=== PATIENT | male | born 1960 | race Caucasian/White ===

== ENCOUNTER 2019-11-24 21:19 | Inpatient (IN) | payer OTHER, SELFPAY ==
[2019-11-24] VITALS (7 sets, daily range): BP systolic 138–158; BP diastolic 72–91; PULSE 88–103; RESP 16–25; TEMP 37.6–38; O2SAT 97–99
--- NOTE | ~2019-11-24 | XR_ITS ---
EXAMINATION: XR foot LT min 3V DATE: 11/24/2019 22:57 INDICATION: Left foot pain and foot wound TECHNIQUE: Dorsoplantar, lateral, and 2 oblique views of the left foot were obtained. COMPARISON: None. FINDINGS: A linear radiopaque foreign body is present in the plantar soft tissues adjacent to the sha ft of the fourth metatarsal. In addition, there is plantar soft tissue gas of the foot near the fifth toe. There is osteopenia in the medial and plantar aspect of the fifth metatarsal head. There is adv anced osteoarthritis of the proximal foot and moderate osteoarthritis of the midfoot. Calcified ather osclerosis is noted. IMPRESSION: 1. Plantar soft tissue gas with findings suggestive of osteomyelitis of the fifth metatarsal head. 2. Linear radiopaque foreign body in the plantar soft tissues of the foot. 3. Osteoarthritis. Reviewed, dictated and finalized at location A. IMPRESSION: 1. Plantar soft tissue gas with findings suggestive of osteomyelitis of the fif th metatarsal head. 2. Linear radiopaque foreign body in the plantar soft tissues of the foot. 3. Osteoarthritis.
--- NOTE | ~2019-11-24 | XR_ITS ---
EXAMINATION: XR chest 1V portable INDICATION: Fever TECHNIQUE: Portable AP chest at 2239 hours COMPARISON: None available FINDINGS: There are minimal airspace opacities of the mid and lower lung zones. No pleural effusion o r pneumothorax is identified. The cardiomediastinal silhouette is normal. IMPRESSION: 1. Minimal airspace opacities of the mid and lower lung zones, consistent with atelectasis versus pne umonia. Reviewed, dictated and finalized at location A. IMPRESSION: 1. Minimal airspace opacities of the mid and lower lung zones, consistent with atelectasis versus pneumonia.
--- NOTE | ~2019-11-24 | US_ITS ---
EXAMINATION: US arterial ankle brachial ind DATE: 11/28/2019 13:48 INDICATION: Left foot ulcer. TECHNIQUE: Segmental pressures and plethysmographic and Doppler waveforms of the brachial and lower e xtremity arteries were obtained. COMPARISON: None. FINDINGS: The right brachial artery pressure was not measured. The left brachial artery pressure is 165 mm Hg. There is a right below-knee amputation. The left LONG could not be measured due to inability to cuff-occlude the arteries. The left TBI is 0.7 6. Arterial Doppler waveforms are biphasic at the ankle. IMPRESSION: 1. Normal left TBI and nondiagnostic left LONG. No significant arterial occlusive disease. Reviewed, dictated and finalized at location A. IMPRESSION: 1. Normal left TBI and nondiagnostic left LONG. No significant arterial occlusiv e disease.
--- NOTE | ~2019-11-24 | US_ITS ---
EXAMINATION: US renal BI DATE: 11/25/2019 15:22 INDICATION: Acute kidney injury. TECHNIQUE: Multiple ultrasound grayscale images of the kidneys were obtained. COMPARISON: None. FINDINGS: The right kidney measures 10.2 x 5.3 x 4.5 cm. The left kidney measures 10.5 x 5.1 x 4.7 cm. The kidn eys demonstrate normal parenchymal echogenicity. There is a 1.8 cm cyst in left kidney. There is no h ydronephrosis. The bladder is decompressed by a Salguero catheter. IMPRESSION: 1. Normal kidney sizes. No hydronephrosis. Reviewed, dictated and finalized at location A.
--- NOTE | ~2019-11-24 | US_ITS ---
. EXAMINATION: US biopsy renal DATE: 12/01/2019 13:21 INDICATION: Acute kidney injury. TECHNIQUE: The procedure including the risks, benefits, and alternatives was discussed with the patie nt. Risks discussed included bleeding and infection. The patient understood the risks and agreed to p roceed. A timeout was performed to verify the patient's name, date of , and procedure to be p erformed. The skin overlying the left kidney was prepped and draped in usual sterile fashion. Anest hetic was administered with 1% lidocaine subcutaneously. An 18 gauge core biopsy needle was then use d to obtain 5 core biopsy specimens under continuous sonographic guidance. The entry site was cleaned and dressed. There were no immediate complications. FINDINGS: Ultrasound images demonstrate the needle in the kidney. IMPRESSION: 1. Ultrasound-guided random left kidney core needle biopsy. Reviewed, dictated and finalized at location A.
--- NOTE | ~2019-11-24 | CT_ITS ---
EXAMINATION: CT brain wo con INDICATION: Generalized weakness, sudden onset blindness COMPARISON: None TECHNIQUE: Standard unenhanced head CT. The dose-length product (DLP) was 681.00 mGy-cm. The mA was a djusted according to patient size. Iterative reconstruction technique was employed. FINDINGS: There is no acute intraparenchymal hemorrhage. No evidence of mass lesion. No evidence of a cute infarction. There is mild periventricular and subcortical hypodensity probably related to small vessel ischemic disease. There is mild prominence of the sulci and ventricles related to cerebral atr ophy. Intracranial calcified cerebral atherosclerosis is noted. There are no extra-axial collections. There is no mass effect or midline shift. The orbits and soft tissues are unremarkable. There is mi ld mucosal thickening of the paranasal sinuses. IMPRESSION: 1. No acute intracranial abnormality. 2. Age related findings. Reviewed, dictated and finalized at location A.
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
--- NOTE | 2019-11-24 21:34 | ECG_ITS ---
Measurements Intervals [place] Rate: 98 P: [place]: 0 QRS: -50 QRSD: 146 T: 63 QT: 364 QTc: 467 Interpretive Statements SINUS RHYTHM RIGHT BUNDLE BRANCH BLOCK LEFT ANTERIOR FASCICULAR BLOCK BASELINE ARTIFACT- V2 ABNORMAL ECG Electronically Signed On 11-25-2019 6:50:13 CDT by Gui Conner D.O.
[2019-11-24] MEDS: SODIUM CHLORIDE 0.9% IV 1,000 ML 999 ML IV CONT (21:38)
[2019-11-24] MEDS: ACETAMINOPHEN 500 MG TABLET 1000 MG PO (21:38)
[2019-11-24 21:43] LABS: Basophils Percent Auto 0.1 % (0.2-1.2); Eosinophils Percent Auto 0.1 % (0-4.4); Hematocrit 26.3 % (42.0-52.0); Hemoglobin 8.3 g/dL (14.0-18.0); Immature Granulocyte Absolute 0.05 K/mm3 (0.00-0.031); Immature Granulocyte Percent A 0.3 % (0-0.5); Lymphocytes Absolute Auto 1.19 K/mm3 (0.9-3.2); Lymphocytes Percent Auto 8.3 % (18.3-44.2); Mean Corpuscular HGB Conc 31.6 g/dl (32-36); Mean Corpuscular Hemoglobin 30.3 pg (26-34); Mean Platelet Volume 9.7 fl (7.4-10.4); Monocytes Absolute Auto 1.1 K/mm3 (0.1-0.6); Monocytes Percent Auto 7.4 % (2.6-8.5); Neutrophils Percent Auto 83.8 % (45.5-73.1); Platelet Count Result 225 k/mm3 (150-375); Red Blood Count 2.74 M/mm3 (4.6-6.20); White Blood Count 14.4 K/mm3 (4.5-10.0)
[2019-11-24 21:52] LABS: INR 1.2; Prothrombin Time 14.9 Seconds (11.1-14.7)
[2019-11-24 21:53] LABS: Partial Thromboplastin Time 34.4 SECONDS (22.3-36.8)
[2019-11-24 21:54] LABS: Lactic Acid Reflex 0.8 mmol/L (0.7-2.1)
[2019-11-24 21:58] LABS: Alveolar/Arterial O2 Gradient 33.5 mmHg; Base Excess ABG -8.5 mEq/l (+/-2.0); Carboxyhemoglobin 0.3 % THb (0-2.0); Fractional Inspired Oxygen 21 %; HCO3 ABG 16.7 mEq/l (22.0-26.0); Methemoglobin ABG 0.3 %THb (0-1.5); Oxygen Content ABG 11.4 %vol (16.0-22.0); Oxygen Saturation ABG 94.6 % (95.0-100.0); Oxyhemoglobin 92.5 % THb (90.0-100.0); PCO2 ABG 32.8 mmHg (35.0-45.0); PO2 FiO2 Ratio Arterial Blood 3.67 %; Reduced Hemoglobin 6.9 %THb (0-5.0); Total Hemoglobin 8.7 g/dL (12.0-18.0); pH ABG 7.324 (7.350-7.450)
[2019-11-24 22:00] LABS: Alanine Aminotransferase 23 U/L (4-50); Albumin Level 3.3 g/dL (3.5-5.1); Alkaline Phosphatase 63 U/L (38-126); Anion Gap 9 mmol/L (8-16); Aspartate Amino Transferase 46 U/L (17-59); Bilirubin,Total 0.3 mg/dL (0.2-1.3); Blood Urea Nitrogen 71 mg/dL (9-20); Calcium 8.6 mg/dL (8.4-10.2); Carbon Dioxide 18 mmol/L (22-30); Chloride 109 mmol/L (98-107); Estimated CRCL calculation 10 ml/min; Estimated Glomerular Filt Rate 6; Glucose 97 mg/dL (75-110); Potassium 5.5 mmol/L (3.4-5.0); Sodium 136 mmol/L (137-145)
[2019-11-24 22:00] LABS: Device ROOM AIR; Modified Allen's Test Pass; Site Drawn RIGHT RADIAL
[2019-11-24 22:07] LABS: NT Pro B Type Natriuretic Pept > 35000 PG/ML (5-100); Troponin I 0.335 ng/mL (0.000-0.034)
[2019-11-24] MEDS: DEXTROSE 50% 25 GM/50 ML SYRINGE IV PUSH (23:14)
[2019-11-24] MEDS: INSULIN HUMAN REGULAR (*BKC) 100 UNITS/ML 10 UNITS IV PUSH (23:15)
[2019-11-24] MEDS: SODIUM BICARBONATE 8.4% 50 MEQ/50 ML VIAL IV PUSH (23:15)
[2019-11-24] MEDS: CALCIUM GLUCONATE 1,000 MG/10 ML VIAL 1000 MG IV PUSH (23:15)
[2019-11-24 23:16] LABS: Ammonia < 9 umol/L (9-30)
[2019-11-25] VITALS (18 sets, daily range): BP systolic 119–170; BP diastolic 75–99; PULSE 79–105; RESP 14–18; TEMP 36.2–36.8; O2SAT 92–98; BMI 33.5
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
[2019-11-25 00:10] LABS: Add Urine Microscopic? YES; Appearance Urine Clear (Clear); Bacteria Urine Trace /hpf; Bilirubin Urine Negative (Negative); Blood Urine 1+ (Negative); Color Urine Yellow (Yellow); Glucose Urine UA 3+ mg/dL (Negative); Ketones Urine Negative (Negative); Leukocyte Esterase Ur Negative LEU/UL (Negative); Mucus Urine Rare /lpf; Nitrate Urine Negative (Negative); Protein Urine 3+ mg/dL (Negative); Squamous Epithelial Cell Urine Occasional /hpf (Few); Urobilinogen Urine Negative mg/dL (<2.0)
[2019-11-25 00:48] LABS: Glucose Point of Care 90 (65-105)
--- NOTE | 2019-11-25 01:43 | PC.NURSE ---
Addendum entered by Gricelda Sandoval 11/25/19 03:32: @[address] CHAVIRA- ED CALL LIST NOT CORRECT AND HE IS PROVIDER SNAP ATTACHER. EDP ALSO SPOKE TO DR. CHAVIRA ABOUT CALL SHEET. Original Note: ATTEMPTED TO CALL ER ON-CALL NON-INTERVENTIONAL CARDIOLOGY 3 TIMES; 11.24.2019 @2330, 11.25.2019 @0009, AND 11.25.2019 @0043. ALL THREE CALL ATTEMPTS THROUGH [facility]. STAFF SEEMED CONFUSED ON WHO TO CALL AND DR. CHAVIRA CALLED BACK BUT TOLD US HE WAS THE ESTABLISHED PT SNAP ATTACHER DOCTOR . ONCE I CALLED [facility] BACK, THEY WERE INFORMED TO CALL ER ON-CALL MD. WE NEVER RECEIVED CALL BACK FROM AN MD. PT WAS BROUGHT TO ICU. THIS TECH CALLED TO INFORM NURSE CARING FOR PT ABOUT THE SITUATION AND TO HAVE CONSULT IN THE MORNING.
--- NOTE | 2019-11-25 02:01 | ADMGEN ---
This patient, Kurt Goode, was admitted to Intensive Care Unit-5. Patient/family oriented to hospital policies and general routines including ID bracelet, bed and alarms, visiting hours, pain management, procedures, bathroom and other care routines, personal items, smoking policy, room service/diet, and visiting hours. Valuables list has been completed. Information on how to activate the Rapid Response Team has been discussed. Patient/Family are encouraged to report perceived risks to care and to ask questions if they do not understand what they are told or what they should do.
[2019-11-25] MEDS: FUROSEMIDE INJ 40 MG/4 ML VIAL IV PUSH (02:11)
[2019-11-25 03:48] LABS: Basophils Percent Auto 0.2 % (0.2-1.2); Eosinophils Absolute Auto 0.1 K/mm3 (0-0.3); Eosinophils Percent Auto 0.7 % (0-4.4); Hematocrit 24.4 % (42.0-52.0); Hemoglobin 7.7 g/dL (14.0-18.0); Immature Granulocyte Absolute 0.05 K/mm3 (0.00-0.031); Immature Granulocyte Percent A 0.4 % (0-0.5); Lymphocytes Absolute Auto 1.56 K/mm3 (0.9-3.2); Lymphocytes Percent Auto 12.9 % (18.3-44.2); Mean Corpuscular HGB Conc 31.6 g/dl (32-36); Mean Corpuscular Hemoglobin 30.8 pg (26-34); Mean Corpuscular Volume 97.6 fl (80-100); Monocytes Absolute Auto 1.1 K/mm3 (0.1-0.6); Neutrophils Absolute Auto 9.3 K/mm3 (1.3-6.7); Neutrophils Percent Auto 76.8 % (45.5-73.1); Platelet Count Result 196 k/mm3 (150-375); Red Cell Distribution Width 13.2 % (11.5-14.5); White Blood Count 12.1 K/mm3 (4.5-10.0)
[2019-11-25 04:02] LABS: Anion Gap 7 mmol/L (8-16); Blood Urea Nitrogen 73 mg/dL (9-20); Calcium 8.5 mg/dL (8.4-10.2); Carbon Dioxide 19 mmol/L (22-30); Chloride 110 mmol/L (98-107); Estimated CRCL calculation 11 ml/min; Estimated Glomerular Filt Rate 6; Glucose 77 mg/dL (75-110); Potassium 5.2 mmol/L (3.4-5.0); Sodium 136 mmol/L (137-145)
[2019-11-25 04:18] LABS: Troponin I 0.443 ng/mL (0.000-0.034)
--- NOTE | 2019-11-25 06:00 | ECHO_ITS ---
Patient Info Name: Kurt Goode Age: 59 years : 1960 Gender: Male Ht: 74 in Wt: 249 lbs BSA: 2.46 m2 Exam Date: 11/25/2019 7:50 AM Exam Location: [facility] Patient Status: Inpatient Admit Date: 11/24/2019 Staff Ordering Physician: Alix Gallegos MD Attending Provider: Rodo Hudson MD Referring Physician: El STEWART; Exam Type: CA echo doppler color flow Summary 1. There is mild increased left ventricular wall thickness. 2. Left ventricular systolic function is low normal, estimated EF \R\ 50%. 3. There is mild aortic valve calcification. 4. There is no aortic valve stenosis. 5. There is no mitral valve regurgitation. 6. Can't assess RVSP due to poor TR signal. . 7. There is no pericardial effusion. 8. Inferior vena cava is dilated with no collapse upon inspiration consistent with volume overload. Left Ventricle Left ventricular chamber dimension is normal. Left ventricular systolic function is low normal, estimated EF \R\ 50%. There is mild increased left ventricular wall thickness. Difficult to arcuately assess regional wall motion changes due to poor endocardial definition. The left ventricular diastolic function is impaired. Right Ventricle Right ventricular chamber dimension is normal. Right ventricular systolic function is normal. Left Atria Left atrial chamber dimension is normal. Right Atria Right atrial chamber dimension is normal. Aortic Valve The aortic valve is trileaflet. There is no aortic valve sclerosis. There is no aortic valve stenosis. There is no aortic valve regurgitation. There is mild aortic valve calcification. Pulmonic Valve The pulmonic valve is normal. There is no pulmonic valve stenosis. There is no pulmonic regurgitation. Mitral Valve The mitral valve has normal leaflets. There is no mitral valve stenosis. There is no mitral valve regurgitation. Tricuspid Valve The tricuspid valve leaflets are normal. There is no significant tricuspid valve stenosis. There is no tricuspid valve regurgitation. Can't assess RVSP due to poor TR signal. . Pericardium/Pleural The pericardium appears normal. There is no pericardial effusion. Inferior Vena Cava Inferior vena cava is dilated with no collapse upon inspiration consistent with volume overload. Aorta The aortic root size at the sinus of Valsalva is normal. The prox ascending aorta size is normal. Left Ventricular Outflow Tract Name Value Normal LVOT 2D LVOT Diameter 2.3 cm LVOT Doppler LVOT Peak Velocity 76 cm/s LVOT Peak Gradient 2 mmHg LVOT Mean Gradient 1 mmHg LVOT VTI 14 cm LVOT VTI/AV VTI Ratio 0.9 LVOT Stroke Volume 56 ml LVOT CO 5.3 l/min LVOT CI 2.2 l/min/m2 Mitral Valve Name Value Normal
[2019-11-25] MEDS: LEVOTHYROXINE SODIUM 112 MCG TABLET PO (06:29)
[2019-11-25 06:46] LABS: Free T4 Free Thyroxine Reflex 1.04 ng/dL (0.78-2.19)
--- NOTE | 2019-11-25 07:47 | PM.CNCAR ---
Assessment and Plan Assessment and plan (1) Elevated troponin: Code(s): R79.89 - Other specified abnormal findings of blood chemistry Status: Acute Assessment and Plan: 59 y/o with h/o DM complicated with diabetic foot infection s/p right BKA, CKD who was admitted with shortness of breath and cough who was found to have mildly elevated troponin His trop is 0.3-->0.4. He has atypical chest pain only with cough EKG with RBBB and no ischemic changes His trop elevation is likely due to type II NH from increased demand related to underlying sepsis as well as BREE No indication for AC at this point. WIll follow troponin to peak Will check 2D echo to rule out regional wall motion changes Given multiple cardiovascular risk factors he would benefit from stress testing for risk stratification. That can be done in outpatient setting once he recovers from infection and BREE (2) Acute exacerbation of CHF (congestive heart failure): Qualifiers: Heart failure type: unspecified Qualified Code(s): I50.9 - Heart failure, unspecified Code(s): I50.9 - Heart failure, unspecified Status: Acute Assessment and Plan: In the setting of BREE that appears in part due to obstructive uropathy. He had 1 liter of urine with straight cath and creatinine already improving. Would hold off diuresis with loop diuretics anticipating Postobstructive diuresis Follow 2D echocardiogram (3) Acute renal failure: Qualifiers: Acute renal failure type: unspecified Qualified Code(s): N17.9 - Acute kidney failure, unspecified Code(s): N17.9 - Acute kidney failure, unspecified Status: Acute Assessment and Plan: management per nephrology (4) Diabetes: Qualifiers: Diabetes mellitus type: type 2 Diabetes mellitus engineering program manager insulin use: with custodial use Diabetes mellitus complication status: with circulatory complication Diabetes mellitus complication detail: with other circulatory complications Qualified Code(s): E11.59 - Type 2 diabetes mellitus with other circulatory complications; Z79.4 - correction (current) use of insulin Code(s): E11.9 - Type 2 diabetes mellitus without complications Status: Chronic History of Present Illness History of Present Illness Consult date/time: 11/25/19 07:47 59 y/o male with h/o hypothyroidism, DM, s/p BKA of right lower ext, CKD, BPH with urinary retention, recent hospitalization with left foot wound infection who presents now with shortness of breath and cough On admission he met sepsis criteria with fever 38.0, tachycardic 103 and leukocytosis 14. His labs were also notable for creatinine of 9.4 without clear baseline with K 5.2. He was also found to have mildly elevated troponin at 0.3-->0.4 hence cardiology consult was requested. Patient is somewhat poor historian. He denies having any heart issues in the past. He was coughing non stop through my encounter with him. He admits to chest pain when he coughs. He also reports shortness of breath. He underwent BKA of right leg about 5 years ago due to diabetic foot infection. EKG shows sinus tachycardia with RBBB and LAFB Reason For Visit: Weakness+ Review of Systems Review of Systems: All systems reviewed & are unremarkable except as noted in HPI and below Constitutional: Constitutional: Denies fatigue and Denies headache(s) Eyes: Eyes: Denies blurry vision ENT: Reports Normal hearing present and Denies headache(s) Cardiovascular: Cardiovascular: Denies chest pain, Denies diaphoresis, Denies pedal edema, Denies leg edema, Denies lightheadedness, Denies palpitations and Denies dyspnea Respiratory: Respiratory: Denies cough and Denies dyspnea Gastrointestinal: Gastrointestinal: Denies abdominal pain Musculoskeletal: Musculoskeletal: Denies back pain Neurologic: Reports Normal hearing present and Denies headache(s) Psychiatric: Psychiatric: Denies anxiety Endocri
[2019-11-25 08:00] LABS: Total Triiodothyronine (T3) 0.76 NG/ML (0.97-1.69)
[2019-11-25] MEDS: ASPIRIN 325 MG TABLET PO (08:30)
[2019-11-25 08:49] LABS: Glucose Point of Care 90 (65-105)
[2019-11-25] MEDS: LORazepam (*CRX) 0.5 MG TABLET PO ×2 (10:27→23:08)
[2019-11-25] MEDS: GABAPENTIN 300 MG CAPSULE 600 MG PO ×2 (10:27→17:06)
[2019-11-25 12:06] LABS: Glucose Point of Care 99 (65-105)
[2019-11-25 14:17] LABS: SARS-CoV-2 RNA PCR Negative
--- NOTE | 2019-11-25 15:20 | PC.NURSE ---
Patient downgraded to IMU status. Report given to Sarah FUENTES. Patient travelled via bed to 201 with all belongings and medications given to school secretary at 1520
--- NOTE | 2019-11-25 15:23 | PC.NURSE ---
This patient, Kurt Goode, was received from ICU-5 into 201 on 11/25/19 at 1523. Personal belongings list checked and signed. Patient/family oriented to unit policies and routines
--- NOTE | 2019-11-25 15:53 | P.CONNP_ITS ---
Assessment and Plan Assessment and plan (1) Acute renal failure: Qualifiers: Acute renal failure type: unspecified Qualified Code(s): N17.9 - Acute kidney failure, unspecified Code(s): N17.9 - Acute kidney failure, unspecified Status: Acute Assessment and Plan: * etiology is unclear * is this progression of disease versus and acute insult on his baseline CKD??? * UA is significant for blood and protein so vasculitis, glomerulonephritis, or some other inflammatory disorder is possible * will proceed with serological testing as well as urine electrolytes...etc * renal ultrasound noted * may need to consider a renal biopsy for a definitive diagnosis * in spite of labs, no urgent need for LOADING SHOVEL OILER/dialysis at this time * may need to discuss with family as I am not clear if he understands the seriousness of this problem/issue (2) Chronic kidney disease, stage 3: Code(s): N18.3 - Chronic kidney disease, stage 3 (moderate) Status: Acute Assessment and Plan: * creatinine of 1.83mg/dl in April 2018 (presumed bseline) * likely on the basis of HTN, diabetes, and vascular disease (3) Hyperkalemia: Code(s): E87.5 - Hyperkalemia Status: Acute Assessment and Plan: * mild and likely related to #1 * follow trend for now (4) Sepsis: Qualifiers: Acute renal failure type: unspecified Sepsis acute organ dysfunction status: with acute organ dysfunction Sepsis type: sepsis due to unspecified organism Severe sepsis acute organ dysfunction type: acute renal failure Severe sepsis shock status: without septic shock Qualified Code(s): A41.9 - Sepsis, unspecified organism; R65.20 - Severe sepsis without septic shock; N17.9 - Acute kidney failure, unspecified Code(s): A41.9 - Sepsis, unspecified organism Status: Acute Assessment and Plan: * patient on hospitalization at [facility] as well as currently * presumably due to right foot osteomyelitis (#4) * follow cultures * continue antibiotics * follow hemodynamics (5) Osteomyelitis: Qualifiers: Laterality: left Osteomyelitis location: foot Osteomyelitis type: other Qualified Code(s): M86.8X7 - Other osteomyelitis, ankle and foot Code(s): M86.9 - Osteomyelitis, unspecified Status: Acute Assessment and Plan: * as noted by imaging studies to date * Orthopedics consulted * surgical intervention? (6) Elevated troponin: Code(s): R79.89 - Other specified abnormal findings of blood chemistry Status: Acute Assessment and Plan: * Cardiology recommendations noted * supportive therapy (7) Anemia: Qualifiers: Anemia type: unspecified type Qualified Code(s): D64.9 - Anemia, unspecified Code(s): D64.9 - Anemia, unspecified Status: Acute Assessment and Plan: * presumably due to BREE, CKD, and acute illness * consider Epogen while hospitalized * follow trend of H/H (8) Diabetes: Qualifiers: Diabetes mellitus complication detail: with other circulatory complicat ions Diabetes mellitus complication status: with circulatory complication Diabetes mellitus petroleum terminal plant operator insulin use: with fdc use Diabetes mellitus type: type 2 Qualified Code(s): E11.59 - Type 2 diabetes mellitus with other circulatory complications; Z79.4 - intermodal dispatcher (current) use of insulin Code(s): E11.9 - Type 2 diabetes mellitus without complications Status: Chronic Assessment and Plan: * follow accuchecks * poor control at baseline given las
--- NOTE | 2019-11-25 15:53 | PM.CNNEP ---
Assessment and Plan Assessment and plan (1) Acute renal failure: Qualifiers: Acute renal failure type: unspecified Qualified Code(s): N17.9 - Acute kidney failure, unspecified Code(s): N17.9 - Acute kidney failure, unspecified Status: Acute Assessment and Plan: etiology is unclear is this progression of disease versus and acute insult on his baseline CKD??? UA is significant for blood and protein so vasculitis, glomerulonephritis, or some other inflammatory disorder is possible will proceed with serological testing as well as urine electrolytes...etc renal ultrasound noted may need to consider a renal biopsy for a definitive diagnosis in spite of labs, no urgent need for JAVA ANDROID DEVELOPER/dialysis at this time may need to discuss with family as I am not clear if he understands the seriousness of this problem/issue (2) Chronic kidney disease, stage 3: Code(s): N18.3 - Chronic kidney disease, stage 3 (moderate) Status: Acute Assessment and Plan: creatinine of 1.83mg/dl in April 2018 (presumed bseline) likely on the basis of HTN, diabetes, and vascular disease (3) Hyperkalemia: Code(s): E87.5 - Hyperkalemia Status: Acute Assessment and Plan: mild and likely related to #1 follow trend for now (4) Sepsis: Qualifiers: Acute renal failure type: unspecified Sepsis acute organ dysfunction status: with acute organ dysfunction Sepsis type: sepsis due to unspecified organism Severe sepsis acute organ dysfunction type: acute renal failure Severe sepsis shock status: without septic shock Qualified Code(s): A41.9 - Sepsis, unspecified organism; R65.20 - Severe sepsis without septic shock; N17.9 - Acute kidney failure, unspecified Code(s): A41.9 - Sepsis, unspecified organism Status: Acute Assessment and Plan: patient on hospitalization at [facility] as well as currently presumably due to right foot osteomyelitis (#4) follow cultures continue antibiotics follow hemodynamics (5) Osteomyelitis: Qualifiers: Laterality: left Osteomyelitis location: foot Osteomyelitis type: other Qualified Code(s): M86.8X7 - Other osteomyelitis, ankle and foot Code(s): M86.9 - Osteomyelitis, unspecified Status: Acute Assessment and Plan: as noted by imaging studies to date Orthopedics consulted surgical intervention? (6) Elevated troponin: Code(s): R79.89 - Other specified abnormal findings of blood chemistry Status: Acute Assessment and Plan: Cardiology recommendations noted supportive therapy (7) Anemia: Qualifiers: Anemia type: unspecified type Qualified Code(s): D64.9 - Anemia, unspecified Code(s): D64.9 - Anemia, unspecified Status: Acute Assessment and Plan: presumably due to BREE, CKD, and acute illness consider Epogen while hospitalized follow trend of H/H (8) Diabetes: Qualifiers: Diabetes mellitus complication detail: with other circulatory complications Diabetes mellitus complication status: with circulatory complication Diabetes mellitus correction insulin use: with termite control technician use Diabetes mellitus type: type 2 Qualified Code(s): E11.59 - Type 2 diabetes mellitus with other circulatory complications; Z79.4 - manager long term care (current) use of insulin Code(s): E11.9 - Type 2 diabetes mellitus without complications Status: Chronic Assessment and Plan: follow accuchecks poor control at baseline given last A1c on SSI Will continue to follow. History of Present Illness Reason for Consult Consult date: 11/25/19 Reason for consult: acute renal failure (on chronic kidney disease) Chief Complaint Chief complaint: Weakness+ History of Present Illness Narrative: All of the information I have obtained is from review of the electronic medical record, discussion with ER physcian last night, nursing, and availa
--- NOTE | 2019-11-25 16:31 | PM.IMPN ---
Progress Note: A&P Assessment and Plan (1) Acute exacerbation of CHF (congestive heart failure): Qualifiers: Heart failure type: unspecified Qualified Code(s): I50.9 - Heart failure, unspecified Code(s): I50.9 - Heart failure, unspecified Status: Acute Assessment and Plan: The patient appears to have undiagnosed heart failure seen by cardiology here. (2) Acute renal failure: Qualifiers: Acute renal failure type: unspecified Qualified Code(s): N17.9 - Acute kidney failure, unspecified Code(s): N17.9 - Acute kidney failure, unspecified Status: Acute Assessment and Plan: Likely secondary to urinary retention seen by nephroloy here (3) Urinary retention: Code(s): R33.9 - Retention of urine, unspecified Status: Acute Assessment and Plan: Insert Salguero catheter and monitor urine output. (4) Osteomyelitis: Qualifiers: Laterality: left Osteomyelitis location: foot Osteomyelitis type: other Qualified Code(s): M86.8X7 - Other osteomyelitis, ankle and foot Code(s): M86.9 - Osteomyelitis, unspecified Status: Acute Assessment and Plan: Continue antibiotics that were started in the ER for osteomyelitis. Consult orthopedics (5) Sepsis: Qualifiers: Acute renal failure type: unspecified Sepsis acute organ dysfunction status: with acute organ dysfunction Sepsis type: sepsis due to unspecified organism Severe sepsis acute organ dysfunction type: acute renal failure Severe sepsis shock status: without septic shock Qualified Code(s): A41.9 - Sepsis, unspecified organism; R65.20 - Severe sepsis without septic shock; N17.9 - Acute kidney failure, unspecified Code(s): A41.9 - Sepsis, unspecified organism Status: Resolved Assessment and Plan: Continue antibiotics. Bc negative to date. (6) Anemia: Qualifiers: Anemia type: unspecified type Qualified Code(s): D64.9 - Anemia, unspecified Code(s): D64.9 - Anemia, unspecified Status: Acute Assessment and Plan: Acute versus chronic anemia. .. (7) Suspected 2019 novel coronavirus infection: Code(s): Z20.828 - Contact with and (suspected) exposure to other viral communicable diseases Status: Inactive Assessment and Plan: COVID is negative (8) Leukocytosis: Qualifiers: Leukocytosis type: unspecified Qualified Code(s): D72.829 - Elevated white blood cell count, unspecified Code(s): D72.829 - Elevated white blood cell count, unspecified Status: Acute Assessment and Plan: May be secondary to osteomyelitis. Monitor CBCD. (9) Elevated troponin: Code(s): R79.89 - Other specified abnormal findings of blood chemistry Status: Acute Assessment and Plan: Troponin leak is likely secondary to acute heart failure exacerbation. (10) Hyperkalemia: Code(s): E87.5 - Hyperkalemia Status: Resolved Assessment and Plan: (11) Diabetes: Qualifiers: Diabetes mellitus type: type 2 Diabetes mellitus care home insulin use: with regional intermodal truck driver use Diabetes mellitus complication status: with circulatory complication Diabetes mellitus complication detail: with other circulatory complications Qualified Code(s): E11.59 - Type 2 diabetes mellitus with other circulatory complications; Z79.4 - exterminator helper termite (current) use of insulin Code(s): E11.9 - Type 2 diabetes mellitus without complications Status: Chronic Assessment and Plan: Unknown. Check hemoglobin A1c. Accu-Cheks. sliding scale insulin coverage. hypoglycemia protocol. Subjective Date/time seen: 11/25/19 16:31 Interval history: 1 year old Diabetic male male with known RLE BKA who presented to the hospital with a complaint of generalized weakness, shortness of breath and a dry hacking cough. COVID is negative, seen by cardiology for C HF and a
[2019-11-25] MEDS: SODIUM POLYSTYRENE SULFONONATE 15 GM/60 ML BTL PO (17:07)
[2019-11-25 17:21] LABS: Glucose Point of Care 117 (65-105)
[2019-11-25 20:33] LABS: Glucose Point of Care 109 (65-105)
[2019-11-25] MEDS: hydrALAZINE HCL 20 MG/ML VIAL 10 MG IV PUSH (20:58)
[2019-11-25 22:05] LABS: Creatinine Urine 85.9 mg/dL
[2019-11-25 22:37] LABS: Sodium Urine Random 49 meq/L
[2019-11-25 22:43] LABS: Total Protein Urine Random > 600 mg/dL
[2019-11-26] VITALS (13 sets, daily range): BP systolic 133–169; BP diastolic 73–90; PULSE 82–107; RESP 18–20; TEMP 36.1–36.5; O2SAT 95–98
[2019-11-26] MEDS: LEVOTHYROXINE SODIUM 112 MCG TABLET PO (06:13)
[2019-11-26 07:36] LABS: Hematocrit 24.5 % (42.0-52.0); Hemoglobin 7.9 g/dL (14.0-18.0); Mean Corpuscular HGB Conc 32.2 g/dl (32-36); Mean Corpuscular Hemoglobin 31.1 pg (26-34); Mean Corpuscular Volume 96.5 fl (80-100); Mean Platelet Volume 10.1 fl (7.4-10.4); Platelet Count Result 251 k/mm3 (150-375); Red Blood Count 2.54 M/mm3 (4.6-6.20); Red Cell Distribution Width 13.1 % (11.5-14.5); White Blood Count 13.7 K/mm3 (4.5-10.0)
[2019-11-26 07:46] LABS: Albumin Level 2.8 g/dL (3.5-5.1); Anion Gap 10 mmol/L (8-16); Blood Urea Nitrogen 78 mg/dL (9-20); Calcium 8.2 mg/dL (8.4-10.2); Carbon Dioxide 17 mmol/L (22-30); Chloride 107 mmol/L (98-107); Estimated CRCL calculation 10 ml/min; Estimated Glomerular Filt Rate 6; Glucose 90 mg/dL (75-110); Phosphorus 7.4 mg/dL (2.5-4.5); Potassium 4.9 mmol/L (3.4-5.0); Sodium 134 mmol/L (137-145)
[2019-11-26 07:53] LABS: Complement C3 94 mg/dL (88-165)
[2019-11-26 08:36] LABS: Hepatitis B Surface Antigen Negative (Negative)
[2019-11-26] MEDS: GABAPENTIN 300 MG CAPSULE 600 MG PO ×2 (08:44→17:23)
[2019-11-26] MEDS: ASPIRIN 325 MG TABLET PO (08:44)
[2019-11-26] MEDS: SILVERGEL (ELTA) 45 ML 1 APPLIC TOPICAL (08:44)
[2019-11-26 08:50] LABS: Hepatitis B Surface Anti Res Negative
[2019-11-26 08:52] LABS: HAV RESULT Negative (Negative); Hepatitis B Core IgM Result Negative (Negative); Hepatitis C Virus Antibody Negative (Negative)
[2019-11-26 09:31] LABS: Glucose Point of Care 91 (65-105)
--- NOTE | 2019-11-26 10:06 | P.PNNP_ITS ---
Progress Note: A&P Assessment and Plan (1) Acute renal failure: Qualifiers: Acute renal failure type: unspecified Qualified Code(s): N17.9 - Acute kidney failure, unspecified Code(s): N17.9 - Acute kidney failure, unspecified Status: Acute Assessment and Plan: * etiology is unclear * is this progression of disease versus and acute insult on his baseline CKD??? * UA is significant for blood and protein so vasculitis, glomerulonephritis, or some other inflammatory disorder is possible * serological testing pending * proteinuria still present * renal ultrasound noted * non-oliguric at this time * may need to consider a renal biopsy for a definitive diagnosis * in spite of labs, no urgent need for TICKET SALES SUPERVISOR/dialysis at this time * may need to discuss with family as I am not clear if he understands the seri ousness of this problem/issue (2) Chronic kidney disease, stage 3: Code(s): N18.3 - Chronic kidney disease, stage 3 (moderate) Status: Acute Assessment and Plan: * creatinine of 1.83mg/dl in April 2018 (presumed baseline) * likely on the basis of HTN, diabetes, and vascular disease (3) Hyperkalemia: Code(s): E87.5 - Hyperkalemia Status: Acute Assessment and Plan: * mild and likely related to #1 * resolving * follow trend for now (4) Sepsis: Qualifiers: Acute renal failure type: unspecified Sepsis acute organ dysfunction status: with acute organ dysfunction Sepsis type: sepsis due to unspecified organism Severe sepsis acute organ dysfunction type: acute renal failure Severe sepsis shock status: without septic shock Qualified Code(s): A41.9 - Sepsis, unspecified organism; R65.20 - Severe sepsis without septic shock; N17.9 - Acute kidney failure, unspecified Code(s): A41.9 - Sepsis, unspecified organism Status: Acute Assessment and Plan: * patient on hospitalization at [facility] as well as currently * presumably due to right foot osteomyelitis (#4) * follow cultures * continue antibiotics * follow hemodynamics (5) Osteomyelitis: Qualifiers: Laterality: left Osteomyelitis location: foot Osteomyelitis type: other Qualified Code(s): M86.8X7 - Other osteomyelitis, ankle and foot Code(s): M86.9 - Osteomyelitis, unspecified Status: Acute Assessment and Plan: * as noted by imaging studies to date * Orthopedics consulted * surgical intervention? (6) Elevated troponin: Code(s): R79.89 - Other specified abnormal findings of blood chemistry Status: Acute Assessment and Plan: * Cardiology recommendations noted * supportive therapy (7) Anemia: Qualifiers: Anemia type: unspecified type Qualified Code(s): D64.9 - Anemia, unspec ified Code(s): D64.9 - Anemia, unspecified Status: Acute Assessment and Plan: * presumably due to BREE, CKD, and acute illness * consider Epogen while hospitalized * follow trend of H/H (8) Diabetes: Qualifiers: Diabetes mellitus complication detail: with other circulatory complications Diabetes mellitus complication status: with circulatory complication Diabetes mellitus chcf insulin use: with chcf use Diabetes mellitus type: type 2 Qualified Code(s): E11.59 - Type 2 diabetes mellitus with other circulatory complications; Z79.4 - intermediate school teacher (current) use of insulin Code(s): E11.9 - Type 2 diabetes mellitus without complications Status: Chronic Assessment and Plan: * follow accuchecks
--- NOTE | 2019-11-26 10:06 | PM.PNNEP ---
Progress Note: A&P Assessment and Plan (1) Acute renal failure: Qualifiers: Acute renal failure type: unspecified Qualified Code(s): N17.9 - Acute kidney failure, unspecified Code(s): N17.9 - Acute kidney failure, unspecified Status: Acute Assessment and Plan: etiology is unclear is this progression of disease versus and acute insult on his baseline CKD??? UA is significant for blood and protein so vasculitis, glomerulonephritis, or some other inflammatory disorder is possible serological testing pending proteinuria still present renal ultrasound noted non-oliguric at this time may need to consider a renal biopsy for a definitive diagnosis in spite of labs, no urgent need for ELECTRICIAN RECTIFIER MAINTENANCE/dialysis at this time may need to discuss with family as I am not clear if he understands the seriousness of this problem/issue (2) Chronic kidney disease, stage 3: Code(s): N18.3 - Chronic kidney disease, stage 3 (moderate) Status: Acute Assessment and Plan: creatinine of 1.83mg/dl in April 2018 (presumed baseline) likely on the basis of HTN, diabetes, and vascular disease (3) Hyperkalemia: Code(s): E87.5 - Hyperkalemia Status: Acute Assessment and Plan: mild and likely related to #1 resolving follow trend for now (4) Sepsis: Qualifiers: Acute renal failure type: unspecified Sepsis acute organ dysfunction status: with acute organ dysfunction Sepsis type: sepsis due to unspecified organism Severe sepsis acute organ dysfunction type: acute renal failure Severe sepsis shock status: without septic shock Qualified Code(s): A41.9 - Sepsis, unspecified organism; R65.20 - Severe sepsis without septic shock; N17.9 - Acute kidney failure, unspecified Code(s): A41.9 - Sepsis, unspecified organism Status: Acute Assessment and Plan: patient on hospitalization at [facility] as well as currently presumably due to right foot osteomyelitis (#4) follow cultures continue antibiotics follow hemodynamics (5) Osteomyelitis: Qualifiers: Laterality: left Osteomyelitis location: foot Osteomyelitis type: other Qualified Code(s): M86.8X7 - Other osteomyelitis, ankle and foot Code(s): M86.9 - Osteomyelitis, unspecified Status: Acute Assessment and Plan: as noted by imaging studies to date Orthopedics consulted surgical intervention? (6) Elevated troponin: Code(s): R79.89 - Other specified abnormal findings of blood chemistry Status: Acute Assessment and Plan: Cardiology recommendations noted supportive therapy (7) Anemia: Qualifiers: Anemia type: unspecified type Qualified Code(s): D64.9 - Anemia, unspecified Code(s): D64.9 - Anemia, unspecified Status: Acute Assessment and Plan: presumably due to BREE, CKD, and acute illness consider Epogen while hospitalized follow trend of H/H (8) Diabetes: Qualifiers: Diabetes mellitus complication detail: with other circulatory complications Diabetes mellitus complication status: with circulatory complication Diabetes mellitus intermediate insulin use: with intermediate use Diabetes mellitus type: type 2 Qualified Code(s): E11.59 - Type 2 diabetes mellitus with other circulatory complications; Z79.4 - care home (current) use of insulin Code(s): E11.9 - Type 2 diabetes mellitus without complications Status: Chronic Assessment and Plan: follow accuchecks poor control at baseline given last A1c on SSI Will continue to follow. Subjective Date/time seen: 11/26/19 10:06 No apparent distress noted at the time of my visit; states that his kidneys are doing great despite my conversation to him that they are not; discussed with him the possible need for renal biopsy and he states one of the doctors at the [facility] mentioned that to him as well. Exam Narrative: Exam Narr
--- NOTE | 2019-11-26 10:51 | PM.PNCARD ---
Progress Note: A&P Assessment and Plan (1) Chronic kidney disease, stage 3: Code(s): N18.3 - Chronic kidney disease, stage 3 (moderate) Status: Acute (2) Diabetes: Qualifiers: Diabetes mellitus complication detail: with other circulatory complications Diabetes mellitus complication status: with circulatory complication Diabetes mellitus science technicians insulin use: with long-term use Diabetes mellitus type: type 2 Qualified Code(s): E11.59 - Type 2 diabetes mellitus with other circulatory complications; Z79.4 - retirement (current) use of insulin Code(s): E11.9 - Type 2 diabetes mellitus without complications Status: Chronic (3) Elevated troponin: Code(s): R79.89 - Other specified abnormal findings of blood chemistry Status: Acute Assessment and Plan: His trop is 0.3-->0.4. He has atypical chest pain only with cough EKG with RBBB and no ischemic changes His trop elevation is likely due to type II ID from increased demand related to underlying sepsis as well as BREE No indication for AC at this point. ECHO pending Given multiple cardiovascular risk factors he would benefit from further cardiac evaluation on outpatient basis when medically stable. (4) Acute exacerbation of CHF (congestive heart failure): Qualifiers: Heart failure type: unspecified Qualified Code(s): I50.9 - Heart failure, unspecified Code(s): I50.9 - Heart failure, unspecified Status: Acute Assessment and Plan: n the setting of BREE that appears in part due to obstructive uropathy. He had 1 liter of urine with straight cath and creatinine already improving. Would hold off diuresis with loop diuretics anticipating Postobstructive diuresis Follow 2D echocardiogram Subjective Date/time seen: 11/26/19 10:51 Pt feels better today. Denies CP or SOB. His LE edema improved Had some abdominal pain and diarrhea last night since he ate pepper for which he is allergic. Now feels better and is eager to go home. Asks for extra pillows. Pt was seen and examined, chart was reviewed, case was d/w pt's nurse. Review of Systems Review of Systems: All systems reviewed & are unremarkable except as noted in HPI and below Constitutional: Constitutional: Reports as per HPI Eyes: Eyes: Reports as per HPI ENT: Reports system reviewed and no additional complaints, except as documented and Reports as per HPI Cardiovascular: Cardiovascular: Reports as per HPI Respiratory: Respiratory: Reports as per HPI Gastrointestinal: Gastrointestinal: Reports as per HPI Genitourinary: Genitourinary: Reports as per HPI Musculoskeletal: Musculoskeletal: Reports as per HPI Exam Const: General: no acute distress Nutritional Appearance: well nourished Orientation/consciousness: patient oriented x3 HENMT: Head: normal to inspection and atraumatic Ears: hearing grossly normal bilaterally Face and sinus: normal facial exam Eyes: General: appearance normal, both eyes and all related structures Pupils: Equal, round and reactive pupils present EOM: EOMs intact bilaterally Neck: Neck: supple Chest: Chest palpation & inspection: normal inspection of the chest Resp: Effort & Inspection: normal respiratory effort and no respiratory distress Auscultation: clear to auscultation bilaterally Cardio: Jugular venous distension: no JVD Rate: regular rate Heart sounds: S1 normal heart sound present, S2 normal heart sound present and no murmurs Peripheral pulses: Peripheral pulses 2+ throughout GI: GI Palp: No abdominal tenderness Auscultation: normal bowel sounds Skin: General skin exam: normal color Neuro: General: patient oriented x3 Cranial nerves: Yes Equal, round and reactive pupils present Extrem: General: no clubbing, cyanosis or edema Other: s/p R BKA Objective Data Vital Signs Vital Signs: Vital Signs - 24 hr 11/25/19 11:27 11/25/19 12:00 11/25/19 14:00 Temperature 36.6 C Pulse Rate
[2019-11-26 13:01] LABS: Glucose Point of Care 92 (65-105)
[2019-11-26 14:13] LABS: IFOB Positive Control Positive; Immunochemical Fecal Occult Bl Negative (N)
--- NOTE | 2019-11-26 16:24 | PM.IMPN ---
Progress Note: A&P Assessment and Plan (1) Acute exacerbation of CHF (congestive heart failure): Qualifiers: Heart failure type: unspecified Qualified Code(s): I50.9 - Heart failure, unspecified Code(s): I50.9 - Heart failure, unspecified Status: Acute Assessment and Plan: The patient appears to have undiagnosed heart failure seen by cardiology here. (2) Acute renal failure: Qualifiers: Acute renal failure type: unspecified Qualified Code(s): N17.9 - Acute kidney failure, unspecified Code(s): N17.9 - Acute kidney failure, unspecified Status: Acute Assessment and Plan: Likely secondary to urinary retention seen by nephrology here, Creat is 9.3 pt may benefit from renal biopsy. (3) Urinary retention: Code(s): R33.9 - Retention of urine, unspecified Status: Acute Assessment and Plan: Insert Salguero catheter and monitor urine output. (4) Osteomyelitis: Qualifiers: Laterality: left Osteomyelitis location: foot Osteomyelitis type: other Qualified Code(s): M86.8X7 - Other osteomyelitis, ankle and foot Code(s): M86.9 - Osteomyelitis, unspecified Status: Acute Assessment and Plan: Continue antibiotics that were started in the ER for osteomyelitis. Consult orthopedics. (5) Sepsis: Qualifiers: Acute renal failure type: unspecified Sepsis acute organ dysfunction status: with acute organ dysfunction Sepsis type: sepsis due to unspecified organism Severe sepsis acute organ dysfunction type: acute renal failure Severe sepsis shock status: without septic shock Qualified Code(s): A41.9 - Sepsis, unspecified organism; R65.20 - Severe sepsis without septic shock; N17.9 - Acute kidney failure, unspecified Code(s): A41.9 - Sepsis, unspecified organism Status: Resolved Assessment and Plan: Continue antibiotics. Bc negative to date. (6) Anemia: Qualifiers: Anemia type: unspecified type Qualified Code(s): D64.9 - Anemia, unspecified Code(s): D64.9 - Anemia, unspecified Status: Acute Assessment and Plan: Acute versus chronic anemia. (7) Suspected 2019 novel coronavirus infection: Code(s): Z20.828 - Contact with and (suspected) exposure to other viral communicable diseases Status: Inactive Assessment and Plan: COVID is negative (8) Leukocytosis: Qualifiers: Leukocytosis type: unspecified Qualified Code(s): D72.829 - Elevated white blood cell count, unspecified Code(s): D72.829 - Elevated white blood cell count, unspecified Status: Acute Assessment and Plan: May be secondary to osteomyelitis. Monitor CBCD. (9) Elevated troponin: Code(s): R79.89 - Other specified abnormal findings of blood chemistry Status: Acute Assessment and Plan: Troponin leak is likely secondary to acute heart failure exacerbation. (10) Hyperkalemia: Code(s): E87.5 - Hyperkalemia Status: Resolved Assessment and Plan: (11) Diabetes: Qualifiers: Diabetes mellitus type: type 2 Diabetes mellitus residential insulin use: with residential use Diabetes mellitus complication status: with circulatory complication Diabetes mellitus complication detail: with other circulatory complications Qualified Code(s): E11.59 - Type 2 diabetes mellitus with other circulatory complications; Z79.4 - terminal gauger (current) use of insulin Code(s): E11.9 - Type 2 diabetes mellitus without complications Status: Chronic Assessment and Plan: Unknown to pt. Check hemoglobin A1c. Accu-Cheks. Sliding scale insulin coverage. Hypoglycemia protocol. Additional Plan Subjective Date/time seen: 11/26/19 16:24 Interval history: 1 year old Diabetic male male with known RLE BKA who presented to the hospital with a complaint of generalized weakness, shortness of breath and a
[2019-11-26 16:43] LABS: Glucose Point of Care 133 (65-105)
--- NOTE | 2019-11-26 19:50 | PC.NURSE ---
This patient, Kurt Goode, was transferred to room 326 on 11/26/19 at 1950. Personal belongings sent with patient. Belongings list checked and signed with receiving. Report given to 3rd floor RN by GINA Smith. Appropriate documentation sent with patient.
--- NOTE | 2019-11-26 20:24 | PC.NURSE ---
1950- Pt arrived to room 326-2 from IMU by wheelchair. Negative for adverse sign/symptoms and respiratory distress. Denies discomfort at this time.
[2019-11-26] MEDS: LORazepam (*CRX) 0.5 MG TABLET PO (22:22)
[2019-11-26 22:48] LABS: Glucose Point of Care 116 (65-105)
[2019-11-27 03:11] LABS: Hematocrit 24.7 % (42.0-52.0); Mean Corpuscular HGB Conc 32.4 g/dl (32-36); Mean Corpuscular Hemoglobin 30.9 pg (26-34); Mean Corpuscular Volume 95.4 fl (80-100); Mean Platelet Volume 9.9 fl (7.4-10.4); Platelet Count Result 300 k/mm3 (150-375); Red Blood Count 2.59 M/mm3 (4.6-6.20); Red Cell Distribution Width 12.9 % (11.5-14.5)
[2019-11-27 03:22] LABS: Albumin Level 3.1 g/dL (3.5-5.1); Anion Gap 10 mmol/L (8-16); Blood Urea Nitrogen 79 mg/dL (9-20); Calcium 8.6 mg/dL (8.4-10.2); Carbon Dioxide 18 mmol/L (22-30); Chloride 106 mmol/L (98-107); Estimated CRCL calculation 10 ml/min; Estimated Glomerular Filt Rate 5; Glucose 118 mg/dL (75-110); Phosphorus 7.8 mg/dL (2.5-4.5); Sodium 134 mmol/L (137-145)
[2019-11-27 03:35] LABS: Vancomycin Random 8.7 ug/mL (10-20)
--- NOTE | 2019-11-27 05:08 | PC.NURSE ---
0501-Pt reported to this RN pain rating an 8 on scale of 1-10. MD notified. SEE ORDERS. 0505- discussed med allergies with patient. Pt refused med ordered by MD. Pt accepted warm blankets to left lower extremity and back in lieu of medication prescribed to address pain complaint. Continuing to monitor.
[2019-11-27 05:37] VITALS: BP 166/99; PULSE 100; RESP 18; TEMP 37; O2SAT 99
[2019-11-27] MEDS: LEVOTHYROXINE SODIUM 112 MCG TABLET PO (06:35)
[2019-11-27 08:22] VITALS: PULSE 64; O2SAT 96
[2019-11-27 09:25] LABS: Glucose Point of Care 102 (65-105)
[2019-11-27] MEDS: GABAPENTIN 300 MG CAPSULE 600 MG PO ×2 (09:46→17:13)
[2019-11-27] MEDS: SILVERGEL (ELTA) 45 ML 1 APPLIC TOPICAL (09:46)
[2019-11-27] MEDS: ASPIRIN 325 MG TABLET PO (09:46)
--- NOTE | 2019-11-27 11:54 | PM.PNCARD ---
Progress Note: A&P Assessment and Plan (1) Diabetes: Qualifiers: Diabetes mellitus complication detail: with other circulatory complications Diabetes mellitus complication status: with circulatory complication Diabetes mellitus penitentiary insulin use: with penitentiary use Diabetes mellitus type: type 2 Qualified Code(s): E11.59 - Type 2 diabetes mellitus with other circulatory complications; Z79.4 - USP (current) use of insulin Code(s): E11.9 - Type 2 diabetes mellitus without complications Status: Chronic (2) Elevated troponin: Code(s): R79.89 - Other specified abnormal findings of blood chemistry Status: Acute Assessment and Plan: His trop is 0.3-->0.4. He has atypical chest pain only with cough EKG with RBBB and no ischemic changes His trop elevation is likely due to type II AR from increased demand related to underlying sepsis as well as BREE No indication for AC at this point. ECHO pending (3) Urinary retention: Code(s): R33.9 - Retention of urine, unspecified Status: Acute (4) Acute renal failure: Qualifiers: Acute renal failure type: unspecified Qualified Code(s): N17.9 - Acute kidney failure, unspecified Code(s): N17.9 - Acute kidney failure, unspecified Status: Acute (5) Sepsis: Qualifiers: Acute renal failure type: unspecified Sepsis acute organ dysfunction status: with acute organ dysfunction Sepsis type: sepsis due to unspecified organism Severe sepsis acute organ dysfunction type: acute renal failure Severe sepsis shock status: without septic shock Qualified Code(s): A41.9 - Sepsis, unspecified organism; R65.20 - Severe sepsis without septic shock; N17.9 - Acute kidney failure, unspecified Code(s): A41.9 - Sepsis, unspecified organism Status: Resolved (6) Osteomyelitis: Qualifiers: Laterality: left Osteomyelitis location: foot Osteomyelitis type: other Qualified Code(s): M86.8X7 - Other osteomyelitis, ankle and foot Code(s): M86.9 - Osteomyelitis, unspecified Status: Acute (7) Acute exacerbation of CHF (congestive heart failure): Qualifiers: Heart failure type: unspecified Qualified Code(s): I50.9 - Heart failure, unspecified Code(s): I50.9 - Heart failure, unspecified Status: Acute Assessment and Plan: In the setting of BREE that appears in part due to obstructive uropathy. He had 1 liter of urine with straight cath and creatinine already improving. Would hold off diuresis with loop diuretics anticipating Postobstructive diuresis Follow 2D echocardiogram Subjective Date/time seen: 11/27/19 Pt feels fine today, No CP or SOB. pt was seen and examined, chart was reviewed, case d/w pt's nurse. Review of Systems Review of Systems: All systems reviewed & are unremarkable except as noted in HPI and below Constitutional: Constitutional: Reports as per HPI Eyes: Eyes: Reports as per HPI ENT: Reports system reviewed and no additional complaints, except as documented and Reports as per HPI Cardiovascular: Cardiovascular: Reports as per HPI Respiratory: Respiratory: Reports as per HPI Gastrointestinal: Gastrointestinal: Reports as per HPI Genitourinary: Genitourinary: Reports as per HPI Musculoskeletal: Musculoskeletal: Reports as per HPI Exam Const: General: no acute distress Nutritional Appearance: well nourished Orientation/consciousness: patient oriented x3 HENMT: Head: normal to inspection and atraumatic Ears: hearing grossly normal bilaterally Face and sinus: normal facial exam Eyes: General: appearance normal, both eyes and all related structures Pupils: Equal, round and reactive pupils present EOM: EOMs intact bilaterally Neck: Neck: supple Chest: Chest palpation & inspection: normal inspection of the chest Resp: Effort & Inspection: normal respiratory effort and no respiratory distress Auscultation: katrin
[2019-11-27 13:25] LABS: Glucose Point of Care 174 (65-105)
--- NOTE | 2019-11-27 13:37 | PM.IMHP ---
H&P: HPI History of Present Illness Date/Time: 11/27/19 13:37 59 YO MALE WITH HX OF TYPE 2 DM AND [facility]ATION OF CHF AND LEFT FOOT PRESSURE WOUND. [facility] AND CAME TO [facility] FOR CARE. HE WAS ADMITTED THROUGH THE ED AND ORTHOPEDICS WAS CONSULTED FOR LEFT FOOT WOUND AND OSTEOMYELITIS OF THE 5TH MT. TODAY HE DOES NOT COMPLAIN OF SOB OR CP. HE HAS NO LEFT FOOT PAIN. HE IS WANTING TO GO HOME AND REFUSING TO BE [facility] BACK TO [facility]. HE IS DENYING ANY ORTHOPEDIC RECOMMENDATIONS FOR TREATMENT. Chief complaint: Weakness+ Narrative: Kurt Goode is a 59 year old male [facility] Past Medical History Medical History Below-knee amputation of right lower extremity Diabetes TIA (transient ischemic attack) Surgical History Surgical History Hx of BKA Family History Family History Sibling COPD (chronic obstructive pulmonary disease) Sibling Decubitus ulcer Social History Social History Smoking status: Current every day smoker Tobacco type: cigarettes Smokeless tobacco user: chewing tobacco Alcohol intake: current Drinks per week: 7 Substance use: never Gender identity (if verbalized by the patient): Male Spiritual care concerns: No Meds Home Medications and Allergies Home Medications Medication Instructions Recorded Confirmed Type aspirin 325 mg PO DAILY 11/25/19 11/25/19 History gabapentin 600 mg PO BID 11/25/19 11/25/19 History levothyroxine 112 mcg PO DAILY 11/25/19 11/25/19 History lorazepam 0.5 mg PO DAILY PRN 11/25/19 11/25/19 History Allergies Allergy/AdvReac Type Severity Reaction Status Date / Time prednisone Allergy Unknown Unknown Verified 11/24/19 21:33 fentanyl Allergy Dizziness Verified 11/24/19 21:33 polyethylene glycol Allergy Blurry Verified 11/24/19 23:13 Vision ANDROGENS Allergy Unknown Unknown Uncoded 11/24/19 21:33 GLYCOL Allergy Blurry Uncoded 11/24/19 21:33 Vision Vital Signs Vital Signs - 24 hr 11/26/19 14:07 11/26/19 18:44 11/26/19 19:50 Temperature 36.3 C L 36.5 C Pulse Rate 84 82 107 H Respiratory Rate 20 20 Blood Pressure 153/89 H 169/90 H Pulse Oximetry 98 98 11/27/19 05:37 11/27/19 08:22 Temperature 37.0 C Pulse Rate 100 64 Respiratory Rate 18 Blood Pressure 166/99 H Pulse Oximetry 99 96 Exam Extrem: Other: ON EXAM HE HAS A RIGHT DKA. THE LEFT LEG SHOWS MULTIPLE CAT SCRATCHES. NO OPEN WOUNDS AND NO CELLULITIS. THE LEFT FOOT HAS A NON DRAINING ULCER OVER THE PLANTAR 5TH MT REGION 1 X 1 CM WITH ESCHAR COVERING THE WOUND, THERE IS NO CELLULITIS, THERE IS NO PURULENCE . HE HAS GOOD MOTION OF FOOT AND ANKLE. HE IS INSENSATE TO THE MAJORITY OF THE FOOT. SENSATION ID INTACT ABOVE THE ANKLE. DP 1+ PT 1+, CAPILLARY REFILL IS SLUGGISH TO NORMAL IN ALL DIGITS. 2+ PITTING EDEMA FROM MID LEG TO FOOT DORSUM. CALF IS SNT, NEG HOMANS SIGN. KNEE HAS NORMAL LIMITS OF MOTION ANS IS NON TENDER WITH NO EFFUSION H&P: Results Labs Labs: Short CBC 11/27/19 Range/Units 02:53 WBC 16.0 H (4.5-10.0) K/mm3 Hgb 8.0 L (14.0-18.0) g/dL Hct 24.7 L (42.0-52.0) % Plt Count 300 (150-375) k/mm3 BMP 11/27/19 02:53 Sodium 134 L Potassium 5.0 Chloride 106 Carbon Dioxide 18 L BUN 79 H Creatinine 9.90 H Glucose 118 H Calcium 8.6 Liver Function 11/27/19 Range/Units 02:53 Albumin 3.1 L (3.5-5.1) g/dL Assessment and Plan Additional Plan IMPRESSION IS TYPE 2 DM WITH LEFT FOOT PRESSURE ULCER AND OSTEOMYELITIS. RECOMMEND ABIs TO LEFT LOWER EXTREMITY. RECOMMEND CONT IV ABX. HE MAY REQUIRE DEBRIDEMENT TO THE WOUND. CURRENTLY HE IS REFUSING TREATMENT AND WOULD LIKE TO CARED FOR AT HOME. WE DISCUSSED THE NEED FOR [employer] ABX AND HE
--- NOTE | 2019-11-27 13:41 | P.PNNP_ITS ---
Progress Note: A&P Assessment and Plan (1) Acute renal failure: Qualifiers: Acute renal failure type: unspecified Qualified Code(s): N17.9 - Acute kidney failure, unspecified Code(s): N17.9 - Acute kidney failure, unspecified Status: Acute Assessment and Plan: * etiology is unclear * is this progression of disease versus and acute insult on his baseline CKD??? * UA is significant for blood and protein so vasculitis, glomerulonephritis, or some other inflammatory disorder is possible * serological testing pending * proteinuria still present * renal ultrasound noted * non-oliguric at this time * may need to consider a renal biopsy for a definitive diagnosis - unfortunately, on full dose ASA at this time - will hold for now on the assumption renal biopsy may need to be done * no urgent need for CT SCAN TECH/dialysis at this time (volume status stable, no critical electrolytes, volume status okay...etc) * may need to discuss with family as I am still not sure he understands the seriousness of this problem/issue (2) Chronic kidney disease, stage 3: Code(s): N18.3 - Chronic kidney disease, stage 3 (moderate) Status: Acute Assessment and Plan: * creatinine of 1.83mg/dl in April 2018 (presumed baseline) * likely on the basis of HTN, diabetes, and vascular disease (3) Hyperkalemia: Code(s): E87.5 - Hyperkalemia Status: Resolved Assessment and Plan: * mild and likely related to #1 * resolving * follow trend for now (4) Sepsis: Qualifiers: Acute renal failure type: unspecified Sepsis acute organ dysfunction status: with acute organ dysfunction Sepsis type: sepsis due to unspecified organism Severe sepsis acute organ dysfunction type: acute renal failure Severe sepsis shock status: without septic shock Qualified Code(s): A41.9 - Sepsis, unspecified organism; R65.20 - Severe sepsis without septic shock; N17.9 - Acute kidney failure, unspecified Code(s): A41.9 - Sepsis, unspecified organism Status: Resolved Assessment and Plan: * patient on hospitalization at [facility] as well as currently * presumably due to right foot osteomyelitis (#4) * follow cultures * continue antibiotics * follow hemodynamics (5) Osteomyelitis: Qualifiers: Laterality: left Osteomyelitis location: foot Osteomyelitis type: other Qualified Code(s): M86.8X7 - Other osteomyelitis, ankle and foot Code(s): M86.9 - Osteomyelitis, unspecified Status: Acute Assessment and Plan: * as noted by imaging studies to date * Orthopedics consulted * surgical intervention? (6) Elevated troponin: Code(s): R79.89 - Other specified abnormal findings of blood chemistry Status: Acute Assessment and Plan: * Cardiology recommendations noted * supportive therapy (7) Anemia: Qualifiers: Anemia type: unspecified type Qualified Code(s): D64.9 - Anemia, u nspecified Code(s): D64.9 - Anemia, unspecified Status: Acute Assessment and Plan: * presumably due to BREE, CKD, and acute illness * consider Epogen while hospitalized * follow trend of H/H (8) Diabetes: Qualifiers: Diabetes mellitus complication detail: with other circulatory complications Diabetes mellitus complication status: with circulatory complication Diabetes mellitus retirement insulin use: with terminal operations supervisor use Diabetes mellitus type: type 2 Qualified Code(s): E11.59 - Type 2 diabetes mellitus with other circulatory compli
--- NOTE | 2019-11-27 13:41 | PM.PNNEP ---
Progress Note: A&P Assessment and Plan (1) Acute renal failure: Qualifiers: Acute renal failure type: unspecified Qualified Code(s): N17.9 - Acute kidney failure, unspecified Code(s): N17.9 - Acute kidney failure, unspecified Status: Acute Assessment and Plan: etiology is unclear is this progression of disease versus and acute insult on his baseline CKD??? UA is significant for blood and protein so vasculitis, glomerulonephritis, or some other inflammatory disorder is possible serological testing pending proteinuria still present renal ultrasound noted non-oliguric at this time may need to consider a renal biopsy for a definitive diagnosis - unfortunately, on full dose ASA at this time - will hold for now on the assumption renal biopsy may need to be done no urgent need for HUMAN RESOURCES ADVISOR/dialysis at this time (volume status stable, no critical electrolytes, volume status okay...etc) may need to discuss with family as I am still not sure he understands the seriousness of this problem/issue (2) Chronic kidney disease, stage 3: Code(s): N18.3 - Chronic kidney disease, stage 3 (moderate) Status: Acute Assessment and Plan: creatinine of 1.83mg/dl in April 2018 (presumed baseline) likely on the basis of HTN, diabetes, and vascular disease (3) Hyperkalemia: Code(s): E87.5 - Hyperkalemia Status: Resolved Assessment and Plan: mild and likely related to #1 resolving follow trend for now (4) Sepsis: Qualifiers: Acute renal failure type: unspecified Sepsis acute organ dysfunction status: with acute organ dysfunction Sepsis type: sepsis due to unspecified organism Severe sepsis acute organ dysfunction type: acute renal failure Severe sepsis shock status: without septic shock Qualified Code(s): A41.9 - Sepsis, unspecified organism; R65.20 - Severe sepsis without septic shock; N17.9 - Acute kidney failure, unspecified Code(s): A41.9 - Sepsis, unspecified organism Status: Resolved Assessment and Plan: patient on hospitalization at [facility] as well as currently presumably due to right foot osteomyelitis (#4) follow cultures continue antibiotics follow hemodynamics (5) Osteomyelitis: Qualifiers: Laterality: left Osteomyelitis location: foot Osteomyelitis type: other Qualified Code(s): M86.8X7 - Other osteomyelitis, ankle and foot Code(s): M86.9 - Osteomyelitis, unspecified Status: Acute Assessment and Plan: as noted by imaging studies to date Orthopedics consulted surgical intervention? (6) Elevated troponin: Code(s): R79.89 - Other specified abnormal findings of blood chemistry Status: Acute Assessment and Plan: Cardiology recommendations noted supportive therapy (7) Anemia: Qualifiers: Anemia type: unspecified type Qualified Code(s): D64.9 - Anemia, unspecified Code(s): D64.9 - Anemia, unspecified Status: Acute Assessment and Plan: presumably due to BREE, CKD, and acute illness consider Epogen while hospitalized follow trend of H/H (8) Diabetes: Qualifiers: Diabetes mellitus complication detail: with other circulatory complications Diabetes mellitus complication status: with circulatory complication Diabetes mellitus watermelon harvesting supervisor insulin use: with nursing home use Diabetes mellitus type: type 2 Qualified Code(s): E11.59 - Type 2 diabetes mellitus with other circulatory complications; Z79.4 - buttermaker (current) use of insulin Code(s): E11.9 - Type 2 diabetes mellitus without complications Status: Chronic Assessment and Plan: follow accuchecks poor control at baseline given last A1c on SSI Will continue to follow. Subjective Date/time seen: 11/27/19 13:41 No apparent distress noted; states that he feels fine -- in spite of his deteriorating kidney fu
[2019-11-27 14:00] VITALS: BP 135/79; PULSE 82; RESP 18; TEMP 36.9; O2SAT 97
--- NOTE | 2019-11-27 14:50 | PM.IMPN ---
Progress Note: A&P Assessment and Plan (1) Acute exacerbation of CHF (congestive heart failure): Qualifiers: Heart failure type: unspecified Qualified Code(s): I50.9 - Heart failure, unspecified Code(s): I50.9 - Heart failure, unspecified Status: Acute Assessment and Plan: The patient appears to have undiagnosed heart failure seen by cardiology here. (2) Acute renal failure: Qualifiers: Acute renal failure type: unspecified Qualified Code(s): N17.9 - Acute kidney failure, unspecified Code(s): N17.9 - Acute kidney failure, unspecified Status: Acute Assessment and Plan: Likely secondary to urinary retention seen by nephrology here, Creat is 9.3 pt may benefit from renal biopsy. (3) Urinary retention: Code(s): R33.9 - Retention of urine, unspecified Status: Acute Assessment and Plan: Insert Salguero catheter and monitor urine output. (4) Osteomyelitis: Qualifiers: Laterality: left Osteomyelitis location: foot Osteomyelitis type: other Qualified Code(s): M86.8X7 - Other osteomyelitis, ankle and foot Code(s): M86.9 - Osteomyelitis, unspecified Status: Acute Assessment and Plan: Continue antibiotics that were started in the ER for osteomyelitis. Consult orthopedics. Pt refusing orthopedic care ? of pts capacity. Consulting 2 nd MD to assess capacity. Pt would like to go home with home health, wound care and IV abx at home (5) Sepsis: Qualifiers: Acute renal failure type: unspecified Sepsis acute organ dysfunction status: with acute organ dysfunction Sepsis type: sepsis due to unspecified organism Severe sepsis acute organ dysfunction type: acute renal failure Severe sepsis shock status: without septic shock Qualified Code(s): A41.9 - Sepsis, unspecified organism; R65.20 - Severe sepsis without septic shock; N17.9 - Acute kidney failure, unspecified Code(s): A41.9 - Sepsis, unspecified organism Status: Resolved Assessment and Plan: Continue antibiotics. Bc negative to date. (6) Anemia: Qualifiers: Anemia type: unspecified type Qualified Code(s): D64.9 - Anemia, unspecified Code(s): D64.9 - Anemia, unspecified Status: Acute Assessment and Plan: Acute versus chronic anemia. (7) Suspected 2019 novel coronavirus infection: Code(s): Z20.828 - Contact with and (suspected) exposure to other viral communicable diseases Status: Inactive Assessment and Plan: COVID is negative (8) Leukocytosis: Qualifiers: Leukocytosis type: unspecified Qualified Code(s): D72.829 - Elevated white blood cell count, unspecified Code(s): D72.829 - Elevated white blood cell count, unspecified Status: Acute Assessment and Plan: May be secondary to osteomyelitis. Monitor CBCD. (9) Elevated troponin: Code(s): R79.89 - Other specified abnormal findings of blood chemistry Status: Acute Assessment and Plan: Troponin leak is likely secondary to acute heart failure exacerbation. (10) Hyperkalemia: Code(s): E87.5 - Hyperkalemia Status: Resolved Assessment and Plan: (11) Diabetes: Qualifiers: Diabetes mellitus type: type 2 Diabetes mellitus termite exterminator helper insulin use: with termite exterminator helper use Diabetes mellitus complication status: with circulatory complication Diabetes mellitus complication detail: with other circulatory complications Qualified Code(s): E11.59 - Type 2 diabetes mellitus with other circulatory complications; Z79.4 - manager terminal (current) use of insulin Code(s): E11.9 - Type 2 diabetes mellitus without complications Status: Chronic Assessment and Plan: Unknown to pt. Check hemoglobin A1c. Accu-Cheks. Sliding scale insulin coverage. Hypoglycemia protocol. Additional Plan Subjective Date/time seen: 11/27/19 14:50 Inte
[2019-11-27 17:31] LABS: Glucose Point of Care 110 (65-105)
[2019-11-27] MEDS: LORazepam (*CRX) 0.5 MG TABLET PO (20:05)
[2019-11-27 20:28] LABS: Glucose Point of Care 107 (65-105)
[2019-11-27 21:38] VITALS: BP 163/90; PULSE 97; RESP 20; TEMP 37.3; O2SAT 96
[2019-11-28 05:18] VITALS: BP 151/93; PULSE 88; RESP 18; TEMP 36.8; O2SAT 98
[2019-11-28] MEDS: LEVOTHYROXINE SODIUM 112 MCG TABLET PO (06:06)
[2019-11-28 06:56] LABS: Albumin Level 3.2 g/dL (3.5-5.1); Anion Gap 13 mmol/L (8-16); Blood Urea Nitrogen 80 mg/dL (9-20); Calcium 8.7 mg/dL (8.4-10.2); Carbon Dioxide 17 mmol/L (22-30); Chloride 103 mmol/L (98-107); Estimated CRCL calculation 10 ml/min; Estimated Glomerular Filt Rate 5; Glucose 96 mg/dL (75-110); Phosphorus 7.5 mg/dL (2.5-4.5); Potassium 4.6 mmol/L (3.4-5.0); Sodium 133 mmol/L (137-145)
[2019-11-28] MEDS: SILVERGEL (ELTA) 45 ML 1 APPLIC TOPICAL (08:00)
[2019-11-28] MEDS: GABAPENTIN 300 MG CAPSULE 600 MG PO ×2 (08:00→17:14)
[2019-11-28 08:23] LABS: Glucose Point of Care 80 (65-105)
--- NOTE | 2019-11-28 09:26 | WPDNEURCNPN ---
Assessment and Plan Assessment and plan (1) Chronic kidney disease, stage 3: Code(s): N18.3 - Chronic kidney disease, stage 3 (moderate) Status: Acute (2) Diabetes: Qualifiers: Diabetes mellitus type: type 2 Diabetes mellitus buttermaker insulin use: with buttermaker use Diabetes mellitus complication status: with circulatory complication Diabetes mellitus complication detail: with other circulatory complications Qualified Code(s): E11.59 - Type 2 diabetes mellitus with other circulatory complications; Z79.4 - computer terminal operator (current) use of insulin Code(s): E11.9 - Type 2 diabetes mellitus without complications Status: Chronic (3) Hyperkalemia: Code(s): E87.5 - Hyperkalemia Status: Resolved (4) Elevated troponin: Code(s): R79.89 - Other specified abnormal findings of blood chemistry Status: Acute (5) Suspected 2019 novel coronavirus infection: Code(s): Z20.828 - Contact with and (suspected) exposure to other viral communicable diseases Status: Inactive (6) Acute renal failure: Qualifiers: Acute renal failure type: unspecified Qualified Code(s): N17.9 - Acute kidney failure, unspecified Code(s): N17.9 - Acute kidney failure, unspecified Status: Acute (7) Encephalopathy: Code(s): G93.40 - Encephalopathy, unspecified Status: Acute Additional Plan continue the management as per the java lead developer I discussed with him further for the importance of the care but as the CT scan of the head is normal no further intervention neurologically is necessary Consult date: 11/28/19 Time Seen: 09:00 HPI: Kurt Goode is a 59 year old male admitted to the hospital with the known case of right lower extremity [id number] amputation and a complaint of generalized weakness with difficulties in breathing along with dry hacking cough but COVID has been negative has already been seen by the support coordinator for congestive heart failure because of the atypical chest pain neurology consultation has been obtained because patient wants to go home does not want any further intervention could not be [facility] as he does not want to go there and appears somewhat disoriented and delusional. Investigation up continue lawn includes the abnormal basic metabolic panel with BUN of 80 creatinine of 10.0 GFR only [address] scan of the head for the bleed or acute stroke Review of Systems Review of Systems: All systems reviewed & are unremarkable except as noted in HPI and below PMFSH Past Medical History Medical History Below-knee amputation of right lower extremity Diabetes TIA (transient ischemic attack) Surgical History Surgical History Hx of BKA Family History Family History Sibling COPD (chronic obstructive pulmonary disease) Sibling Decubitus ulcer Social History Social History Smoking status: Current every day smoker Tobacco type: cigarettes Smokeless tobacco user: chewing tobacco Alcohol intake: current Drinks per week: 7 Substance use: never Gender identity (if verbalized by the patient): Male Spiritual care concerns: No Meds Home Medications and Allergies Home Medications Medication Instructions Recorded Confirmed Type aspirin 325 mg PO DAILY 11/25/19 11/25/19 History gabapentin 600 mg PO BID 11/25/19 11/25/19 History levothyroxine 112 mcg PO DAILY 11/25/19 11/25/19 History lorazepam 0.5 mg PO DAILY PRN 11/25/19 11/25/19 History Allergies Allergy/AdvReac Type Severity Reaction Status Date / Time prednisone Allergy Unknown Unknown Verified 11/24/19 21:33 fentanyl Allergy Dizziness Verified 11/24/19 21:33 polyethylene glycol Allergy Blurry Verified 11/24/19 23:13
--- NOTE | 2019-11-28 09:35 | PM.PNCARD ---
Progress Note: A&P Assessment and Plan (1) Elevated troponin: Code(s): R79.89 - Other specified abnormal findings of blood chemistry Status: Acute Assessment and Plan: Pt remains asymptomatic His trop was borderline (0.3-->0.4) in setting of sepsis and CRI (Cr 9). EKG with RBBB and no ischemic changes His trop elevation is likely due to type II PA from increased demand related to underlying sepsis as well as BREE No indication for AC at this point. ECHO showed low normal LV function (LVEF 50%) Given multiple cardiovascular risk factors he would benefit from further cardiac evaluation on outpatient basis when medically stable. (2) Chronic kidney disease, stage 3: Code(s): N18.3 - Chronic kidney disease, stage 3 (moderate) Status: Acute Assessment and Plan: nephrology fu (3) Diabetes: Qualifiers: Diabetes mellitus complication detail: with other circulatory complications Diabetes mellitus complication status: with circulatory complication Diabetes mellitus physician ophthalmologist insulin use: with retirement use Diabetes mellitus type: type 2 Qualified Code(s): E11.59 - Type 2 diabetes mellitus with other circulatory complications; Z79.4 - administrative specialist (current) use of insulin Code(s): E11.9 - Type 2 diabetes mellitus without complications Status: Chronic (4) Leukocytosis: Qualifiers: Leukocytosis type: unspecified Qualified Code(s): D72.829 - Elevated white blood cell count, unspecified Code(s): D72.829 - Elevated white blood cell count, unspecified Status: Acute (5) Acute exacerbation of CHF (congestive heart failure): Qualifiers: Heart failure type: unspecified Qualified Code(s): I50.9 - Heart failure, unspecified Code(s): I50.9 - Heart failure, unspecified Status: Acute Assessment and Plan: Had volume overload proably du to to kidney failre ECHO showed low normal LV systolic function Now appears euvolemic (6) Sepsis: Qualifiers: Acute renal failure type: unspecified Sepsis acute organ dysfunction status: with acute organ dysfunction Sepsis type: sepsis due to unspecified organism Severe sepsis acute organ dysfunction type: acute renal failure Severe sepsis shock status: without septic shock Qualified Code(s): A41.9 - Sepsis, unspecified organism; R65.20 - Severe sepsis without septic shock; N17.9 - Acute kidney failure, unspecified Code(s): A41.9 - Sepsis, unspecified organism Status: Resolved Assessment and Plan: Management per PC Pt appears stable from cardiac standpoint Disposition per PC Fu in clinic with Dr. Grewal in 2 weeks. Subjective Date/time seen: 11/28/19 09:35 Pt feels fine today. Denies CP or SOB. His LE edema improved Can not sleep in hospital due to bed he claims. Wants to go home. Recently left [facility]. Review of Systems Review of Systems: All systems reviewed & are unremarkable except as noted in HPI and below Constitutional: Constitutional: Reports as per HPI Eyes: Eyes: Reports as per HPI ENT: Reports system reviewed and no additional complaints, except as documented and Reports as per HPI Cardiovascular: Cardiovascular: Reports as per HPI Respiratory: Respiratory: Reports as per HPI Gastrointestinal: Gastrointestinal: Reports as per HPI Genitourinary: Genitourinary: Reports as per HPI Musculoskeletal: Musculoskeletal: Reports as per HPI Exam Const: General: no acute distress Nutritional Appearance: well nourished Orientation/consciousness: patient oriented x3 HENMT: Head: normal to inspection and atraumatic Ears: hearing grossly normal bilaterally Face and sinus: normal facial exam Eyes: General: appearance normal, both eyes and all related structures Pupils: Equal, round and reactive pupils present EOM: EOMs intact bilaterally Neck: Neck: supple Chest: Chest palpation & inspection: normal inspection of the chest Resp:
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
[2019-11-28] MEDS: ISOSORBIDE MONONITRATE 30 MG TAB.ER.24H PO (11:10)
[2019-11-28] MEDS: hydrALAZINE 10 MG TABLET PO ×2 (11:10→17:14)
--- NOTE | 2019-11-28 11:32 | PCNFU ---
Nutrition Follow-Up Complete: Increased protein needs r/t wound healing needs for wound on left hand and foot as evidence by daily protein needs of 138g Goal: Diet advancement to DBCC diet with Brock BID and PO intake above 75% to meet increased protein needs Progressing towards goal. We will continue current goal. Pt current nutrition is Heart Healthy with 1500 ml FR. Nutrition recommendation: Agree Last recorded weight is 115.4 kg. No new weight noted. Bowel Motility: +BM 11/25 Labs Reviewed:Na 133,BUN 80,Cr 10.0 Meds Noted:Synthroid,Novolog Additional Notes: Patient seen today for nutrition follow up. Discussed Brock with patient today 2/2 to wounds. He is agreeable. orders for Brock BID for wound healing. Oral Intakes have been 75,90% of meals. Agree with diet orders. Monitoring: diet, skin, PO intake, labs every 5 days
[2019-11-28 11:47] LABS: Glucose Point of Care 159 (65-105)
[2019-11-28 14:00] VITALS: BP 144/82; PULSE 85; RESP 18; TEMP 37.2; O2SAT 98
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
[2019-11-28 16:49] LABS: Vancomycin Random 14.5 ug/mL (10-20)
[2019-11-28] MEDS: NICOTINE (*PBKC) 7 MG PATCH 1 PATCH TRANSDERM (17:13)
--- NOTE | 2019-11-28 17:19 | PC.NURSE ---
Patient has stated that he has not been helped by any staff at all today. The patient is also stating that I am not following the correct dressing orders. At the 1700 medpass I went over the medications one at a time with the patient. I offered to answer any questions the patient has. He takes the medication then tells me that were not being honest with him or his medications. The patient is no longer able to recognize common items in his room such as his trash can.
[2019-11-28 17:20] LABS: Glucose Point of Care 123 (65-105)
--- NOTE | 2019-11-28 17:23 | PM.IMPN ---
Progress Note: A&P Assessment and Plan (1) Osteomyelitis: Qualifiers: Laterality: left Osteomyelitis location: foot Osteomyelitis type: other Qualified Code(s): M86.8X7 - Other osteomyelitis, ankle and foot Code(s): M86.9 - Osteomyelitis, unspecified Status: Acute Assessment and Plan: Left fifth metatarsal head, plantar soft tissue gas seen on foot x-ray with linear radiopaque foreign body. Surgical debridement has been recommended but patient has refused. He opts to proceed with conservative management. Orthopedic surgery is following and recommendations are appreciated Continue santyl ointment for local debridement Continue primaxin (2) Sepsis: Qualifiers: Acute renal failure type: unspecified Sepsis acute organ dysfunction status: with acute organ dysfunction Sepsis type: sepsis due to unspecified organism Severe sepsis acute organ dysfunction type: acute renal failure Severe sepsis shock status: without septic shock Qualified Code(s): A41.9 - Sepsis, unspecified organism; R65.20 - Severe sepsis without septic shock; N17.9 - Acute kidney failure, unspecified Code(s): A41.9 - Sepsis, unspecified organism Status: Resolved Assessment and Plan: Present on admission and supported by tachycardia, leukocytosis, and fever. Sepsis seems to have resolved. Patient has been afebrile and VSS. Preliminary BCx with NGTD. Continue IV primaxin Closely monitor vital signs (3) Acute exacerbation of CHF (congestive heart failure): Qualifiers: Heart failure type: unspecified Qualified Code(s): I50.9 - Heart failure, unspecified Code(s): I50.9 - Heart failure, unspecified Status: Acute Assessment and Plan: Echo performed 11/24 showing low-normal EF 50% and impaired LV diastolic function. Patient felt to be fluid overloaded secondary to renal injury. Patient now appears euvolemic and clinically compensated. Cardiology is following and recommendations are appreciated. Monitor I&O; monitor daily weights (4) Acute on chronic kidney failure: Code(s): N17.9 - Acute kidney failure, unspecified; N18.9 - Chronic kidney disease, unspecified Status: Acute Assessment and Plan: Patient has history of CKD stage 3. Creatinine at presentation was 9.4 with steady increase up to 10.0 today. Etiology is unclear but possibly progression of his underlying CKD. Electrolytes are stable. Nephrology is following and recommendations are appreciated. Considering renal biopsy during this admission. Aspirin is being held in anticipation of possible renal biopsy. Monitor renal function closely. Avoid nephrotoxic agents and renally dose medications. (5) Paranoia: Code(s): F22 - Delusional disorders Status: Acute Assessment and Plan: Patient has concerns of being poisoned with his medications. He is distrustful of nursing staff. He has disorganized thought process and tangential speech. I am concerned for underlying psychiatric disorder and believe he will benefit from psychiatric referral. (6) Hyperkalemia: Code(s): E87.5 - Hyperkalemia Status: Resolved Assessment and Plan: Potassium 5.5 at presentation. Improved with IV fluids. Potassium stable at 4.6 today. Monitor potassium daily (7) Urinary retention: Code(s): R33.9 - Retention of urine, unspecified Status: Acute Assessment and Plan: Desai catheter initiated on 11/25/19. Unclear etiology at this point. Patient unable to provide any further details regarding this. Urine output has been adequate. Continue desai catheter Attempt voiding trial tomorrow. (8) Anemia: Qualifiers: Anemia type: unspecified type Qualified Code(s): D64.9 - Anemia, unspecified Code(s): D64.9 - Anemia, unspecified Status: Acute Assessment and Plan: Likely secondary to CKD. H&H has remained
--- NOTE | 2019-11-28 17:24 | P.PNNP_ITS ---
Progress Note: A&P Assessment and Plan (1) Acute renal failure: Qualifiers: Acute renal failure type: unspecified Qualified Code(s): N17.9 - Acute kidney failure, unspecified Code(s): N17.9 - Acute kidney failure, unspecified Status: Acute Assessment and Plan: * etiology is unclear * is this progression of disease versus and acute insult on his baseline CKD??? * UA is significant for blood and protein so vasculitis, glomerulonephritis, or some other inflammatory disorder is possible * serological testing pending * proteinuria still present * renal ultrasound noted * non-oliguric at this time * may need to consider a renal biopsy for a definitive diagnosis - unfortunately, was on full dose ASA on admission - will hold this for now on the assumption renal biopsy may need to be done * no urgent need for URBAN SOCIOLOGIST/dialysis at this time (volume status stable, no critical electrolytes, no evidence of uremia...etc) (2) Chronic kidney disease, stage 3: Code(s): N18.3 - Chronic kidney disease, stage 3 (moderate) Status: Acute Assessment and Plan: * creatinine of 1.83mg/dl in April 2018 (presumed baseline) * likely on the basis of HTN, diabetes, and vascular disease (3) Hyperkalemia: Code(s): E87.5 - Hyperkalemia Status: Resolved Assessment and Plan: * mild and likely related to #1 * resolving * follow trend for now (4) Sepsis: Qualifiers: Acute renal failure type: unspecified Sepsis acute organ dysfunction status: with acute organ dysfunction Sepsis type: sepsis due to unspecified organism Severe sepsis acute organ dysfunction type: acute renal failure Severe sepsis shock status: without septic shock Qualified Code(s): A41.9 - Sepsis, unspecified organism; R65.20 - Severe sepsis without septic shock; N17.9 - Acute kidney failure, unspecified Code(s): A41.9 - Sepsis, unspecified organism Status: Resolved Assessment and Plan: * patient on hospitalization at [facility] as well as currently * presumably due to right foot osteomyelitis (#4) * follow cultures * continue antibiotics * follow hemodynamics (5) Osteomyelitis: Qualifiers: Laterality: left Osteomyelitis location: foot Osteomyelitis type: other Qualified Code(s): M86.8X7 - Other osteomyelitis, ankle and foot Code(s): M86.9 - Osteomyelitis, unspecified Status: Acute Assessment and Plan: * as noted by imaging studies to date * Orthopedics following with recommendations noted * continue conservative therapy (6) Elevated troponin: Code(s): R79.89 - Other specified abnormal findings of blood chemistry Status: Acute Assessment and Plan: * Cardiology recommendations noted * supportive therapy (7) Anemia: Qualifiers: Anemia type: unspecified type Qualified Code(s): D64.9 - Anemia, unspecified Code(s): D64.9 - Anemia, unspecified Status: Acute Assessment and Plan: * presumably due to BREE, CKD, and acute illness * consider Epogen while hospitalized * follow trend of H/H (8) Diabetes: Qualifiers: Diabetes mellitus type: type 2 Diabetes mellitus usp insulin use: with intermediate accountant use Diabetes mellitus complication status: with circulatory complication Diabetes mellitus complication detail: with other circulatory complications Qualified Code(s): E11.59 - Type 2 diabetes mellitus with other circulatory complications; Z79.4 - MCFP (current) use of insulin Code(s):
--- NOTE | 2019-11-28 17:24 | PM.PNNEP ---
Progress Note: A&P Assessment and Plan (1) Acute renal failure: Qualifiers: Acute renal failure type: unspecified Qualified Code(s): N17.9 - Acute kidney failure, unspecified Code(s): N17.9 - Acute kidney failure, unspecified Status: Acute Assessment and Plan: etiology is unclear is this progression of disease versus and acute insult on his baseline CKD??? UA is significant for blood and protein so vasculitis, glomerulonephritis, or some other inflammatory disorder is possible serological testing pending proteinuria still present renal ultrasound noted non-oliguric at this time may need to consider a renal biopsy for a definitive diagnosis - unfortunately, was on full dose ASA on admission - will hold this for now on the assumption renal biopsy may need to be done no urgent need for THERAPY TECH/dialysis at this time (volume status stable, no critical electrolytes, no evidence of uremia...etc) (2) Chronic kidney disease, stage 3: Code(s): N18.3 - Chronic kidney disease, stage 3 (moderate) Status: Acute Assessment and Plan: creatinine of 1.83mg/dl in April 2018 (presumed baseline) likely on the basis of HTN, diabetes, and vascular disease (3) Hyperkalemia: Code(s): E87.5 - Hyperkalemia Status: Resolved Assessment and Plan: mild and likely related to #1 resolving follow trend for now (4) Sepsis: Qualifiers: Acute renal failure type: unspecified Sepsis acute organ dysfunction status: with acute organ dysfunction Sepsis type: sepsis due to unspecified organism Severe sepsis acute organ dysfunction type: acute renal failure Severe sepsis shock status: without septic shock Qualified Code(s): A41.9 - Sepsis, unspecified organism; R65.20 - Severe sepsis without septic shock; N17.9 - Acute kidney failure, unspecified Code(s): A41.9 - Sepsis, unspecified organism Status: Resolved Assessment and Plan: patient on hospitalization at [facility] as well as currently presumably due to right foot osteomyelitis (#4) follow cultures continue antibiotics follow hemodynamics (5) Osteomyelitis: Qualifiers: Laterality: left Osteomyelitis location: foot Osteomyelitis type: other Qualified Code(s): M86.8X7 - Other osteomyelitis, ankle and foot Code(s): M86.9 - Osteomyelitis, unspecified Status: Acute Assessment and Plan: as noted by imaging studies to date Orthopedics following with recommendations noted continue conservative therapy (6) Elevated troponin: Code(s): R79.89 - Other specified abnormal findings of blood chemistry Status: Acute Assessment and Plan: Cardiology recommendations noted supportive therapy (7) Anemia: Qualifiers: Anemia type: unspecified type Qualified Code(s): D64.9 - Anemia, unspecified Code(s): D64.9 - Anemia, unspecified Status: Acute Assessment and Plan: presumably due to BREE, CKD, and acute illness consider Epogen while hospitalized follow trend of H/H (8) Diabetes: Qualifiers: Diabetes mellitus type: type 2 Diabetes mellitus terminal makeup operator insulin use: with terminal makeup operator use Diabetes mellitus complication status: with circulatory complication Diabetes mellitus complication detail: with other circulatory complications Qualified Code(s): E11.59 - Type 2 diabetes mellitus with other circulatory complications; Z79.4 - [facility] (current) use of insulin Code(s): E11.9 - Type 2 diabetes mellitus without complications Status: Chronic Assessment and Plan: follow accuchecks poor control at baseline given last A1c on SSI Will continue to follow. Subjective Date/time seen: 11/28/19 17:24 No new complaints or concerns voiced aside from the fact he is having difficult sleeping which he attributes to a hospital bed; continues to make reasonable urine
[2019-11-28 20:00] VITALS: PULSE 99; RESP 18; O2SAT 99
[2019-11-28 22:00] VITALS: BP 163/92; PULSE 99; RESP 18; TEMP 37; O2SAT 99
[2019-11-28 22:47] LABS: Glucose Point of Care 173 (65-105)
[2019-11-29] MEDS: guaiFENesin 12 HR 600 MG TABCR PO ×3 (00:22→20:01)
[2019-11-29] MEDS: LORazepam (*CRX) 0.5 MG TABLET PO ×2 (02:27→23:45)
[2019-11-29 06:00] VITALS: BP 159/89; PULSE 10; RESP 18; TEMP 36.8; O2SAT 100
[2019-11-29] MEDS: LEVOTHYROXINE SODIUM 112 MCG TABLET PO (06:26)
[2019-11-29 06:55] LABS: Hematocrit 23.2 % (42.0-52.0); Hemoglobin 7.6 g/dL (14.0-18.0); Mean Corpuscular HGB Conc 32.8 g/dl (32-36); Mean Corpuscular Hemoglobin 29.7 pg (26-34); Mean Corpuscular Volume 90.6 fl (80-100); Mean Platelet Volume 9.9 fl (7.4-10.4); Platelet Count Result 337 k/mm3 (150-375); Red Blood Count 2.56 M/mm3 (4.6-6.20); Red Cell Distribution Width 12.2 % (11.5-14.5); White Blood Count 13.4 K/mm3 (4.5-10.0)
[2019-11-29 07:06] LABS: Albumin Level 2.9 g/dL (3.5-5.1); Anion Gap 10 mmol/L (8-16); Blood Urea Nitrogen 84 mg/dL (9-20); Calcium 8.4 mg/dL (8.4-10.2); Carbon Dioxide 20 mmol/L (22-30); Chloride 104 mmol/L (98-107); Estimated CRCL calculation 10 ml/min; Estimated Glomerular Filt Rate 5; Glucose 114 mg/dL (75-110); Hemoglobin A1C 5.2 % (<5.7); Phosphorus 7.2 mg/dL (2.5-4.5); Potassium 5.2 mmol/L (3.4-5.0); Sodium 134 mmol/L (137-145)
[2019-11-29 08:07] LABS: Myoglobin, Urine 5600 mcg/L (<28)
[2019-11-29 08:30] VITALS: PULSE 101
--- NOTE | 2019-11-29 10:09 | PC.NURSE ---
Patient is refusing medications this morning. The patient states that he needs to make sure his doctor is okay with taking his medications. The patient is also refusing a dressing change for his foot at this time because the orders aren't right. The patent has been verbally aggressive this morning, patient is cursing at staff.
[2019-11-29] MEDS: hydrALAZINE 10 MG TABLET PO ×2 (10:39→16:48)
[2019-11-29] MEDS: ISOSORBIDE MONONITRATE 30 MG TAB.ER.24H PO (10:39)
[2019-11-29] MEDS: GABAPENTIN 300 MG CAPSULE 600 MG PO ×2 (10:39→16:48)
[2019-11-29 12:23] LABS: Glucose Point of Care 157 (65-105)
--- NOTE | 2019-11-29 12:47 | PM.IMPN ---
Progress Note: A&P Assessment and Plan (1) Osteomyelitis: Qualifiers: Laterality: left Osteomyelitis location: foot Osteomyelitis type: other Qualified Code(s): M86.8X7 - Other osteomyelitis, ankle and foot Code(s): M86.9 - Osteomyelitis, unspecified Status: Acute Assessment and Plan: Left fifth metatarsal head, plantar soft tissue gas seen on foot x-ray with linear radiopaque foreign body. Surgical debridement has been recommended but patient has refused. He opts to proceed with conservative management. Orthopedic surgery is following and recommendations are appreciated Continue santyl ointment for local debridement Continue primaxin (2) Sepsis: Qualifiers: Acute renal failure type: unspecified Sepsis acute organ dysfunction status: with acute organ dysfunction Sepsis type: sepsis due to unspecified organism Severe sepsis acute organ dysfunction type: acute renal failure Severe sepsis shock status: without septic shock Qualified Code(s): A41.9 - Sepsis, unspecified organism; R65.20 - Severe sepsis without septic shock; N17.9 - Acute kidney failure, unspecified Code(s): A41.9 - Sepsis, unspecified organism Status: Resolved Assessment and Plan: Present on admission and supported by tachycardia, leukocytosis, and fever. Sepsis seems to have resolved. Patient has been afebrile and VSS. WBC 13.4 today. Preliminary BCx with NGTD. Continue IV primaxin Closely monitor vital signs (3) Acute exacerbation of CHF (congestive heart failure): Qualifiers: Heart failure type: unspecified Qualified Code(s): I50.9 - Heart failure, unspecified Code(s): I50.9 - Heart failure, unspecified Status: Acute Assessment and Plan: Echo performed 11/24 showing low-normal EF 50% and impaired LV diastolic function. Patient felt to be fluid overloaded secondary to renal injury. He was diuresed and now appears euvolemic and clinically compensated. Cardiology is following and recommendations are appreciated. Monitor I&O; monitor daily weights (4) Acute on chronic kidney failure: Code(s): N17.9 - Acute kidney failure, unspecified; N18.9 - Chronic kidney disease, unspecified Status: Acute Assessment and Plan: Patient has history of CKD stage 3. Creatinine at presentation was 9.4 with steady increase up to 9.9 today. Etiology is unclear but possibly progression of his underlying CKD. Nephrology is following and recommendations are appreciated. Considering renal biopsy during this admission. Aspirin is being held in anticipation of possible renal biopsy. Monitor renal function closely. Avoid nephrotoxic agents and renally dose medications. (5) Hyperkalemia: Code(s): E87.5 - Hyperkalemia Status: Resolved Assessment and Plan: Potassium 5.5 at presentation. Improved with IV fluids. Potassium mildly elevated at 5.2 this morning and declined to 5.1 on repeat this afternoon. Monitor potassium closely. Repeat this evening and again in the morning. (6) Urinary retention: Code(s): R33.9 - Retention of urine, unspecified Status: Acute Assessment and Plan: Desai catheter initiated on 11/25/19 although I am unsure if this was secondary to retention or for strict I&O monitoring. Patient unable to provide any further details regarding this. Urine output has been adequate. Voiding trial today. Will initiate flomax. Resume desai catheter if continued urinary retention with urology follow up. (7) Anemia: Qualifiers: Anemia type: unspecified type Qualified Code(s): D64.9 - Anemia, unspecified Code(s): D64.9 - Anemia, unspecified Status: Acute Assessment and Plan: Likely secondary to CKD. H&H has remained stable. VSS and no evidence of bleeding. Monitor H&H closely. Transfuse prn hgb <7.0 (8) Diabetes: Qualifiers: Diabetes m
[2019-11-29 14:00] VITALS: BP 145/84; PULSE 84; RESP 18; TEMP 36.4; O2SAT 99
[2019-11-29 15:16] LABS: Potassium 5.1 mmol/L (3.4-5.0)
[2019-11-29 16:56] LABS: Glucose Point of Care 118 (65-105)
--- NOTE | 2019-11-29 17:09 | P.PNNP_ITS ---
Progress Note: A&P Assessment and Plan (1) Acute renal failure: Qualifiers: Acute renal failure type: unspecified Qualified Code(s): N17.9 - Acute kidney failure, unspecified Code(s): N17.9 - Acute kidney failure, unspecified Status: Acute Assessment and Plan: * etiology is unclear * is this progression of disease versus and acute insult on his baseline CKD??? * UA is significant for blood and protein so vasculitis, glomerulonephritis, or some other inflammatory disorder is possible * serological testing pending * proteinuria still present * renal ultrasound noted * non-oliguric at this time * may need to consider a renal biopsy for a definitive diagnosis - unfortunately, was on full dose ASA on admission - will hold this for now on the assumption renal biopsy may need to be done (earliest would be if patient agreeable) * no urgent need for MANAGER CCU/dialysis at this time (volume status stable, no critical electrolytes, no evidence of uremia...etc) (2) Chronic kidney disease, stage 3: Code(s): N18.3 - Chronic kidney disease, stage 3 (moderate) Status: Acute Assessment and Plan: * creatinine of 1.83mg/dl in April 2018 (presumed baseline) * likely on the basis of HTN, diabetes, and vascular disease (3) Hyperkalemia: Code(s): E87.5 - Hyperkalemia Status: Resolved Assessment and Plan: * mild and likely related to #1 * resolving * follow trend for now (4) Sepsis: Qualifiers: Acute renal failure type: unspecified Sepsis acute organ dysfunction status: with acute organ dysfunction Sepsis type: sepsis due to unspecified organism Severe sepsis acute organ dysfunction type: acute renal failure Severe sepsis shock status: without septic shock Qualified Code(s): A41.9 - Sepsis, unspecified organism; R65.20 - Severe sepsis without septic shock; N17.9 - Acute kidney failure, unspecified Code(s): A41.9 - Sepsis, unspecified organism Status: Resolved Assessment and Plan: * patient on hospitalization at [facility] as well as currently * presumably due to right foot osteomyelitis (#4) * follow cultures * continue antibiotics * follow hemodynamics (5) Osteomyelitis: Qualifiers: Laterality: left Osteomyelitis location: foot Osteomyelitis type: other Qualified Code(s): M86.8X7 - Other osteomyelitis, ankle and foot Code(s): M86.9 - Osteomyelitis, unspecified Status: Acute Assessment and Plan: * as noted by imaging studies to date * Orthopedics following with recommendations noted * continue conservative therapy (6) Elevated troponin: Code(s): R79.89 - Other specified abnormal findings of blood chemistry Status: Acute Assessment and Plan: * Cardiology recommendations noted * supportive therapy (7) Anemia: Qualifiers: Anemia type: unspecified type Qualified Code(s): D64.9 - Anemia, unspecified Code(s): D64.9 - Anemia, unspecified Status: Acute Assessment and Plan: * presumably due to BREE, CKD, and acute illness * consider Epogen while hospitalized * follow trend of H/H (8) Diabetes: Qualifiers: Diabetes mellitus complication detail: with other circulatory complications Diabetes mellitus complication status: with circulatory complication Diabetes mellitus terminologist insulin use: with terminologist use Diabetes mellitus type: type 2 Qualified Code(s): E11.59 - Type 2 diabetes mellitus with other circulatory complications; Z79.4 - Long
--- NOTE | 2019-11-29 17:09 | PM.PNNEP ---
Progress Note: A&P Assessment and Plan (1) Acute renal failure: Qualifiers: Acute renal failure type: unspecified Qualified Code(s): N17.9 - Acute kidney failure, unspecified Code(s): N17.9 - Acute kidney failure, unspecified Status: Acute Assessment and Plan: etiology is unclear is this progression of disease versus and acute insult on his baseline CKD??? UA is significant for blood and protein so vasculitis, glomerulonephritis, or some other inflammatory disorder is possible serological testing pending proteinuria still present renal ultrasound noted non-oliguric at this time may need to consider a renal biopsy for a definitive diagnosis - unfortunately, was on full dose ASA on admission - will hold this for now on the assumption renal biopsy may need to be done (earliest would be if patient agreeable) no urgent need for SIFTING OPERATOR/dialysis at this time (volume status stable, no critical electrolytes, no evidence of uremia...etc) (2) Chronic kidney disease, stage 3: Code(s): N18.3 - Chronic kidney disease, stage 3 (moderate) Status: Acute Assessment and Plan: creatinine of 1.83mg/dl in April 2018 (presumed baseline) likely on the basis of HTN, diabetes, and vascular disease (3) Hyperkalemia: Code(s): E87.5 - Hyperkalemia Status: Resolved Assessment and Plan: mild and likely related to #1 resolving follow trend for now (4) Sepsis: Qualifiers: Acute renal failure type: unspecified Sepsis acute organ dysfunction status: with acute organ dysfunction Sepsis type: sepsis due to unspecified organism Severe sepsis acute organ dysfunction type: acute renal failure Severe sepsis shock status: without septic shock Qualified Code(s): A41.9 - Sepsis, unspecified organism; R65.20 - Severe sepsis without septic shock; N17.9 - Acute kidney failure, unspecified Code(s): A41.9 - Sepsis, unspecified organism Status: Resolved Assessment and Plan: patient on hospitalization at [facility] as well as currently presumably due to right foot osteomyelitis (#4) follow cultures continue antibiotics follow hemodynamics (5) Osteomyelitis: Qualifiers: Laterality: left Osteomyelitis location: foot Osteomyelitis type: other Qualified Code(s): M86.8X7 - Other osteomyelitis, ankle and foot Code(s): M86.9 - Osteomyelitis, unspecified Status: Acute Assessment and Plan: as noted by imaging studies to date Orthopedics following with recommendations noted continue conservative therapy (6) Elevated troponin: Code(s): R79.89 - Other specified abnormal findings of blood chemistry Status: Acute Assessment and Plan: Cardiology recommendations noted supportive therapy (7) Anemia: Qualifiers: Anemia type: unspecified type Qualified Code(s): D64.9 - Anemia, unspecified Code(s): D64.9 - Anemia, unspecified Status: Acute Assessment and Plan: presumably due to BREE, CKD, and acute illness consider Epogen while hospitalized follow trend of H/H (8) Diabetes: Qualifiers: Diabetes mellitus complication detail: with other circulatory complications Diabetes mellitus complication status: with circulatory complication Diabetes mellitus detention insulin use: with detention use Diabetes mellitus type: type 2 Qualified Code(s): E11.59 - Type 2 diabetes mellitus with other circulatory complications; Z79.4 - jail (current) use of insulin Code(s): E11.9 - Type 2 diabetes mellitus without complications Status: Chronic Assessment and Plan: follow accuchecks poor control at baseline given last A1c on SSI Will continue to follow. Subjective Date/time seen: 11/29/19 17:09 Kidney function remains elevated although relatively stable with stability in electrolytes and reasonable urine
--- NOTE | 2019-11-29 17:11 | PC.NURSE ---
I attempted to bladder scan the patient since he has not voided since removing his desai. The patient will not allow me to. The patient is stating that the doctors are lying to him and holding him hostage here.
[2019-11-29 20:45] LABS: Glucose Point of Care 142 (65-105)
[2019-11-29 22:00] VITALS: BP 154/98; PULSE 103; RESP 20; TEMP 36.5; O2SAT 97
[2019-11-29 22:01] LABS: Potassium 5.3 mmol/L (3.4-5.0)
[2019-11-30] MEDS: LEVOTHYROXINE SODIUM 112 MCG TABLET PO (05:35)
[2019-11-30 06:00] VITALS: BP 146/88; PULSE 92; RESP 20; TEMP 36.5; O2SAT 98
[2019-11-30 07:13] LABS: Hematocrit 23.6 % (42.0-52.0); Hemoglobin 7.7 g/dL (14.0-18.0); Mean Corpuscular HGB Conc 32.6 g/dl (32-36); Mean Corpuscular Volume 91.8 fl (80-100); Mean Platelet Volume 9.4 fl (7.4-10.4); Platelet Count Result 323 k/mm3 (150-375); Red Blood Count 2.57 M/mm3 (4.6-6.20); Red Cell Distribution Width 12.4 % (11.5-14.5); White Blood Count 14.6 K/mm3 (4.5-10.0)
[2019-11-30 07:34] LABS: Albumin Level 2.9 g/dL (3.5-5.1); Anion Gap 13 mmol/L (8-16); Blood Urea Nitrogen 99 mg/dL (9-20); Calcium 8.6 mg/dL (8.4-10.2); Carbon Dioxide 18 mmol/L (22-30); Chloride 104 mmol/L (98-107); Estimated CRCL calculation 10 ml/min; Estimated Glomerular Filt Rate 5; Glucose 112 mg/dL (75-110); Potassium 4.9 mmol/L (3.4-5.0); Sodium 135 mmol/L (137-145)
[2019-11-30 07:41] LABS: Vancomycin Random 22.2 ug/mL (10-20)
--- NOTE | 2019-11-30 08:31 | PC.NURSE ---
Noticed vancomycin was ordered Q48H PRN. Called and she stated to stop the vanc, that they do not believe it is needed at this time.
[2019-11-30] MEDS: COLLAGENASE OINT 30 GM TUBE 1 APPLIC TOPICAL (10:30)
[2019-11-30] MEDS: GABAPENTIN 300 MG CAPSULE 600 MG PO (10:31)
[2019-11-30] MEDS: TAMSULOSIN HCL 0.4 MG CAPSULE PO (10:31)
[2019-11-30] MEDS: guaiFENesin 12 HR 600 MG TABCR PO ×2 (10:31→22:22)
[2019-11-30] MEDS: ISOSORBIDE MONONITRATE 30 MG TAB.ER.24H PO (10:32)
[2019-11-30] MEDS: hydrALAZINE 10 MG TABLET PO (10:32)
[2019-11-30] MEDS: NICOTINE (*PBKC) 7 MG PATCH 1 PATCH TRANSDERM (10:33)
[2019-11-30 11:47] LABS: Complement Total CH50 >60 U/mL (31-60)
[2019-11-30 13:11] LABS: Glucose Point of Care 187 (65-105)
[2019-11-30 14:00] VITALS: BP 155/83; PULSE 106; RESP 14; TEMP 36.2; O2SAT 99
--- NOTE | 2019-11-30 14:41 | P.PNNP_ITS ---
Progress Note: A&P Assessment and Plan (1) Acute renal failure: Qualifiers: Acute renal failure type: unspecified Qualified Code(s): N17.9 - Acute kidney failure, unspecified Code(s): N17.9 - Acute kidney failure, unspecified Status: Acute Assessment and Plan: * etiology is unclear * is this progression of disease versus and acute insult on his baseline CKD??? * UA is significant for blood and protein so vasculitis, glomerulonephritis, or some other inflammatory disorder is possible * serological testing pending * proteinuria present -- nephrotic range * renal ultrasound noted * non-oliguric at this time * plan for renal biopsy for tomorrow a definitive diagnosis (patient agreeable) - unfortunately, was on full dose ASA on admission * no urgent need for CENTRAL STORES ATTENDANT/dialysis at this time (volume status stable, no critical electrolytes, no evidence of uremia...etc) - HOWEVER, he remains at high risk for needing it, particularly if his renal biopsy show no reversible disease (2) Chronic kidney disease, stage 3: Code(s): N18.3 - Chronic kidney disease, stage 3 (moderate) Status: Acute Assessment and Plan: * creatinine of 1.83mg/dl in April 2018 (presumed baseline) * likely on the basis of HTN, diabetes, and vascular disease (3) Hyperkalemia: Code(s): E87.5 - Hyperkalemia Status: Resolved Assessment and Plan: * mild and likely related to #1 * resolving * follow trend for now (4) Sepsis: Qualifiers: Acute renal failure type: unspecified Sepsis acute organ dysfunction status: with acute organ dysfunction Sepsis type: sepsis due to unspecified organism Severe sepsis acute organ dysfunction type: acute renal failure Severe sepsis shock status: without septic shock Qualified Code(s): A41.9 - Sepsis, unspecified organism; R65.20 - Severe sepsis without septic shock; N17.9 - Acute kidney failure, unspecified Code(s): A41.9 - Sepsis, unspecified organism Status: Resolved Assessment and Plan: * patient on hospitalization at [facility] as well as currently * presumably due to right foot osteomyelitis (#4) * follow cultures * continue antibiotics * follow hemodynamics (5) Osteomyelitis: Qualifiers: Laterality: left Osteomyelitis location: foot Osteomyelitis type: other Qualified Code(s): M86.8X7 - Other osteomyelitis, ankle and foot Code(s): M86.9 - Osteomyelitis, unspecified Status: Acute Assessment and Plan: * as noted by imaging studies to date * Orthopedics following with recommendations noted * continue conservative therapy (6) Elevated troponin: Code(s): R79.89 - Other specified abnormal findings of blood chemistry Status: Acute Assessment and Plan: * Cardiology recommendations noted * supportive therapy (7) Anemia: Qualifiers: Anemia type: unspecified type Qualified Code(s): D64.9 - Anemia, u nspecified Code(s): D64.9 - Anemia, unspecified Status: Acute Assessment and Plan: * presumably due to BREE, CKD, and acute illness * consider Epogen while hospitalized * follow trend of H/H (8) Diabetes: Qualifiers: Diabetes mellitus complication detail: with other circulatory complications Diabetes mellitus complication status: with circulatory complication Diabetes mellitus shelter insulin use: with intermodal truck driver use Diabetes mellitus type: type 2 Qualified Code(s): E11.59 - Type 2 diabetes mellitus with other circulatory complications;
--- NOTE | 2019-11-30 14:41 | PM.PNNEP ---
Progress Note: A&P Assessment and Plan (1) Acute renal failure: Qualifiers: Acute renal failure type: unspecified Qualified Code(s): N17.9 - Acute kidney failure, unspecified Code(s): N17.9 - Acute kidney failure, unspecified Status: Acute Assessment and Plan: etiology is unclear is this progression of disease versus and acute insult on his baseline CKD??? UA is significant for blood and protein so vasculitis, glomerulonephritis, or some other inflammatory disorder is possible serological testing pending proteinuria present -- nephrotic range renal ultrasound noted non-oliguric at this time plan for renal biopsy for tomorrow a definitive diagnosis (patient agreeable) - unfortunately, was on full dose ASA on admission no urgent need for DIRECTOR OF STUDENT FINANCIAL SERVICES/dialysis at this time (volume status stable, no critical electrolytes, no evidence of uremia...etc) - HOWEVER, he remains at high risk for needing it, particularly if his renal biopsy show no reversible disease (2) Chronic kidney disease, stage 3: Code(s): N18.3 - Chronic kidney disease, stage 3 (moderate) Status: Acute Assessment and Plan: creatinine of 1.83mg/dl in April 2018 (presumed baseline) likely on the basis of HTN, diabetes, and vascular disease (3) Hyperkalemia: Code(s): E87.5 - Hyperkalemia Status: Resolved Assessment and Plan: mild and likely related to #1 resolving follow trend for now (4) Sepsis: Qualifiers: Acute renal failure type: unspecified Sepsis acute organ dysfunction status: with acute organ dysfunction Sepsis type: sepsis due to unspecified organism Severe sepsis acute organ dysfunction type: acute renal failure Severe sepsis shock status: without septic shock Qualified Code(s): A41.9 - Sepsis, unspecified organism; R65.20 - Severe sepsis without septic shock; N17.9 - Acute kidney failure, unspecified Code(s): A41.9 - Sepsis, unspecified organism Status: Resolved Assessment and Plan: patient on hospitalization at [facility] as well as currently presumably due to right foot osteomyelitis (#4) follow cultures continue antibiotics follow hemodynamics (5) Osteomyelitis: Qualifiers: Laterality: left Osteomyelitis location: foot Osteomyelitis type: other Qualified Code(s): M86.8X7 - Other osteomyelitis, ankle and foot Code(s): M86.9 - Osteomyelitis, unspecified Status: Acute Assessment and Plan: as noted by imaging studies to date Orthopedics following with recommendations noted continue conservative therapy (6) Elevated troponin: Code(s): R79.89 - Other specified abnormal findings of blood chemistry Status: Acute Assessment and Plan: Cardiology recommendations noted supportive therapy (7) Anemia: Qualifiers: Anemia type: unspecified type Qualified Code(s): D64.9 - Anemia, unspecified Code(s): D64.9 - Anemia, unspecified Status: Acute Assessment and Plan: presumably due to BREE, CKD, and acute illness consider Epogen while hospitalized follow trend of H/H (8) Diabetes: Qualifiers: Diabetes mellitus complication detail: with other circulatory complications Diabetes mellitus complication status: with circulatory complication Diabetes mellitus medical terminologist insulin use: with medical terminologist use Diabetes mellitus type: type 2 Qualified Code(s): E11.59 - Type 2 diabetes mellitus with other circulatory complications; Z79.4 - joint terminal attack controller (current) use of insulin Code(s): E11.9 - Type 2 diabetes mellitus without complications Status: Chronic Assessment and Plan: follow accuchecks poor control at baseline given last A1c on SSI Extensive discussion with patient and as well as CEDRIC Yi regarding his renal dysfunction. I was able to discuss the case with the patient [facility] managing director (Dr. Jenkins) as
--- NOTE | 2019-11-30 15:16 | PM.IMPN ---
Progress Note: A&P Assessment and Plan (1) Osteomyelitis: Qualifiers: Laterality: left Osteomyelitis location: foot Osteomyelitis type: other Qualified Code(s): M86.8X7 - Other osteomyelitis, ankle and foot Code(s): M86.9 - Osteomyelitis, unspecified Status: Acute Assessment and Plan: Left fifth metatarsal head. Plantar soft tissue gas seen on foot x-ray with linear radiopaque foreign body. Surgical debridement has been recommended but patient has refused. He opts to proceed with conservative management. Orthopedic surgery is following and recommendations are appreciated Continue santyl ointment for local debridement Continue primaxin and vancomycin. Plan to transition to PO antibiotics at discharge. (2) Sepsis: Qualifiers: Acute renal failure type: unspecified Sepsis acute organ dysfunction status: with acute organ dysfunction Sepsis type: sepsis due to unspecified organism Severe sepsis acute organ dysfunction type: acute renal failure Severe sepsis shock status: without septic shock Qualified Code(s): A41.9 - Sepsis, unspecified organism; R65.20 - Severe sepsis without septic shock; N17.9 - Acute kidney failure, unspecified Code(s): A41.9 - Sepsis, unspecified organism Status: Resolved Assessment and Plan: Present on admission and supported by tachycardia, leukocytosis, and fever. Sepsis has resolved. Patient has been afebrile and VSS. WBC 14.6 today. Preliminary BCx with NGTD. Continue IV primaxin and vancomycin Closely monitor vital signs (3) Acute exacerbation of CHF (congestive heart failure): Qualifiers: Heart failure type: unspecified Qualified Code(s): I50.9 - Heart failure, unspecified Code(s): I50.9 - Heart failure, unspecified Status: Acute Assessment and Plan: Echo performed 11/24 showing low-normal EF 50% and impaired LV diastolic function. Patient felt to be fluid overloaded secondary to renal injury. He was diuresed and now appears euvolemic and clinically compensated. Cardiology is following and recommendations are appreciated. Administer one time dose Bumex 2 mg today due to LE edema. Monitor I&O; monitor daily weights (4) Acute on chronic kidney failure: Code(s): N17.9 - Acute kidney failure, unspecified; N18.9 - Chronic kidney disease, unspecified Status: Acute Assessment and Plan: Patient has history of CKD stage 3. Creatinine at presentation was 9.4 with steady increase up to 9.9 today. Etiology is unclear but possibly progression of his underlying CKD. Nephrology is following and recommendations are appreciated. Plan for renal biopsy tomororw. Aspirin has been held since 11/26 for biopsy. Monitor renal function closely. Avoid nephrotoxic agents and renally dose medications. (5) Hyperkalemia: Code(s): E87.5 - Hyperkalemia Status: Resolved Assessment and Plan: Potassium 5.5 at presentation. Improved with IV fluids. Potassium mildly elevated at 5.2 on 11/29/19 but resolved. Potassium is 4.9 today. Monitor potassium closely. (6) Urinary retention: Code(s): R33.9 - Retention of urine, unspecified Status: Acute Assessment and Plan: Desai catheter initiated on 11/25/19 although I am unsure if this was secondary to retention or for strict I&O monitoring. Patient unable to provide any further details regarding this but does report that he occasionally has issues with urination including weak stream and retention. Suspect underlying BPH. Voiding trial performed 11/29/19 and patient has been urinating without difficulty Continue flomax; started on 11/29/19. Monitor I&O closely. Resume desai catheter if any evidence of further retention. (7) Anemia: Qualifiers: Anemia type: unspecified type Qualified Code(s): D64.9 - Anemia, unspecified Code(s): D64.9 - Anemia, unspecified Status: Acute
[2019-11-30 16:57] LABS: Kappa\\Lambda Light Chains 1.29 (0.26-1.65); Lambda Light Chain 85.3 mg/L (5.7-26.3)
[2019-11-30 18:14] LABS: Glucose Point of Care 107 (65-105)
[2019-11-30] MEDS: HYDROcodone/acetaminophen (*CRX) 5-325 MG TABLET 1 TAB PO (18:30)
[2019-11-30] MEDS: BUMETANIDE 1 MG TABLET 2 MG PO (18:30)
[2019-11-30] MEDS: TOLNAFTATE 1% POWDER 45 GM BTL 1 APPLIC TOPICAL ×2 (18:33→22:26)
[2019-11-30 18:38] LABS: Glucose Point of Care 114 (65-105)
[2019-11-30 18:38] LABS: Chloride Rand Ur 55 mmol/L (32-290); Chloride/Creatinine Rand Ur 59 (23-275); Creatinine Random Urine 93 mg/dL (20-320)
[2019-11-30] MEDS: hydrALAZINE 12.5 MG TABLET PO (18:39)
--- NOTE | 2019-11-30 19:32 | PC.NURSE ---
Pt IV leaking. Pulled and tried to restart him. Another RN and a hot car charger tried and were also unsuccessful. Called MD as pt was refusing any further sticks, even those with ultrasound guidance. MD aware. Pt states he sometimes caths himself when he is unable to go. Requested and received PRN orders for bladder scan and straight caths, if needed. Pt has been inappropriate through out the day in several different conversations. I informed him it was not welcome and let him know he needed to stop. He then made further rude comments and said I must be cold. I let him know that I am here as his nurse and do not appreciate his verbal exchanges.
[2019-11-30 22:00] VITALS: BP 158/73; PULSE 90; RESP 20; TEMP 36.6; O2SAT 97
[2019-11-30] MEDS: LORazepam (*CRX) 0.5 MG TABLET PO (22:25)
[2019-11-30 22:44] LABS: Glucose Point of Care 132 (65-105)
[2019-11-30 23:09] LABS: Albumin 2.3 g/dL (3.8-4.8); Alpha 1 Globulin 0.5 g/dL (0.2-0.3); Alpha 2 Globulin 0.9 g/dL (0.5-0.9); Beta 1 Globulin 0.3 g/dL (0.4-0.6); Gamma Globulin 0.8 g/dL (0.8-1.7)
[2019-12-01 05:55] VITALS: BP 156/93; PULSE 92; RESP 20; TEMP 36.8; O2SAT 99
[2019-12-01] MEDS: LEVOTHYROXINE SODIUM 112 MCG TABLET PO (07:02)
[2019-12-01 08:55] LABS: Glucose Point of Care 110 (65-105)
[2019-12-01 09:21] LABS: Hematocrit 22.2 % (42.0-52.0); Hemoglobin 7.5 g/dL (14.0-18.0); Mean Corpuscular HGB Conc 33.8 g/dl (32-36); Mean Corpuscular Hemoglobin 30.6 pg (26-34); Mean Corpuscular Volume 90.6 fl (80-100); Mean Platelet Volume 9.2 fl (7.4-10.4); Platelet Count Result 314 k/mm3 (150-375); Red Blood Count 2.45 M/mm3 (4.6-6.20); Red Cell Distribution Width 12.5 % (11.5-14.5); White Blood Count 13.2 K/mm3 (4.5-10.0)
--- NOTE | 2019-12-01 09:25 | P.PNNP_ITS ---
Progress Note: A&P Assessment and Plan (1) Acute renal failure: Qualifiers: Acute renal failure type: unspecified Qualified Code(s): N17.9 - Acute kidney failure, unspecified Code(s): N17.9 - Acute kidney failure, unspecified Status: Acute Assessment and Plan: * etiology is unclear * is this progression of disease versus and acute insult on his baseline CKD??? * UA is significant for blood and protein so vasculitis, glomerulonephritis, or some other inflammatory disorder is possible * serological testing pending * proteinuria present -- nephrotic range * renal ultrasound noted * non-oliguric at this time * plan for renal biopsy for today for a definitive diagnosis (patient is agreeable) * no urgent need for MANAGER SHOP/dialysis at this time (volume status stable, no critical electrolytes, no evidence of uremia...etc) - HOWEVER, he remains at high risk for needing it, particularly if his renal biopsy show no reversible disease (2) Chronic kidney disease, stage 3: Code(s): N18.3 - Chronic kidney disease, stage 3 (moderate) Status: Acute Assessment and Plan: * creatinine of 1.83mg/dl in April 2018 (presumed baseline) * likely on the basis of HTN, diabetes, and vascular disease (3) Hyperkalemia: Code(s): E87.5 - Hyperkalemia Status: Resolved Assessment and Plan: * mild and likely related to #1 * resolving * follow trend for now (4) Sepsis: Qualifiers: Acute renal failure type: unspecified Sepsis acute organ dysfunction status: with acute organ dysfunction Sepsis type: sepsis due to unspecified organism Severe sepsis acute organ dysfunction type: acute renal failure Severe sepsis shock status: without septic shock Qualified Code(s): A41.9 - Sepsis, unspecified organism; R65.20 - Severe sepsis without septic shock; N17.9 - Acute kidney failure, unspecified Code(s): A41.9 - Sepsis, unspecified organism Status: Resolved Assessment and Plan: * patient on hospitalization at [facility] as well as currently * presumably due to right foot osteomyelitis (#4) * follow cultures * continue antibiotics * follow hemodynamics (5) Osteomyelitis: Qualifiers: Laterality: left Osteomyelitis location: foot Osteomyelitis type: other Qualified Code(s): M86.8X7 - Other osteomyelitis, ankle and foot Code(s): M86.9 - Osteomyelitis, unspecified Status: Acute Assessment and Plan: * as noted by imaging studies to date * Orthopedics following with recommendations noted * continue conservative therapy (6) Elevated troponin: Code(s): R79.89 - Other specified abnormal findings of blood chemistry Status: Acute Assessment and Plan: * Cardiology recommendations noted * supportive therapy (7) Anemia: Qualifiers: Anemia type: unspecified type Qualified Code(s): D64.9 - Anemia, unspecified Code(s): D64.9 - Anemia, unspecified Status: Acute Assessment and Plan: * presumably due to BREE, CKD, and acute illness * consider Epogen while hospitalized * follow trend of H/H (8) Diabetes: Qualifiers: Diabetes mellitus complication detail: with other circulatory complications Diabetes mellitus complication status: with circulatory complication Diabetes mellitus termite control service representative insulin use: with fpc use Diabetes mellitus type: type 2 Qualified Code(s): E11.59 - Type 2 diabetes mellitus with other circulatory complications; Z79.4 - termite control service representative (current) use of insulin
--- NOTE | 2019-12-01 09:25 | PM.PNNEP ---
Progress Note: A&P Assessment and Plan (1) Acute renal failure: Qualifiers: Acute renal failure type: unspecified Qualified Code(s): N17.9 - Acute kidney failure, unspecified Code(s): N17.9 - Acute kidney failure, unspecified Status: Acute Assessment and Plan: etiology is unclear is this progression of disease versus and acute insult on his baseline CKD??? UA is significant for blood and protein so vasculitis, glomerulonephritis, or some other inflammatory disorder is possible serological testing pending proteinuria present -- nephrotic range renal ultrasound noted non-oliguric at this time plan for renal biopsy for today for a definitive diagnosis (patient is agreeable) no urgent need for PRACTICE CONSULTANT/dialysis at this time (volume status stable, no critical electrolytes, no evidence of uremia...etc) - HOWEVER, he remains at high risk for needing it, particularly if his renal biopsy show no reversible disease (2) Chronic kidney disease, stage 3: Code(s): N18.3 - Chronic kidney disease, stage 3 (moderate) Status: Acute Assessment and Plan: creatinine of 1.83mg/dl in April 2018 (presumed baseline) likely on the basis of HTN, diabetes, and vascular disease (3) Hyperkalemia: Code(s): E87.5 - Hyperkalemia Status: Resolved Assessment and Plan: mild and likely related to #1 resolving follow trend for now (4) Sepsis: Qualifiers: Acute renal failure type: unspecified Sepsis acute organ dysfunction status: with acute organ dysfunction Sepsis type: sepsis due to unspecified organism Severe sepsis acute organ dysfunction type: acute renal failure Severe sepsis shock status: without septic shock Qualified Code(s): A41.9 - Sepsis, unspecified organism; R65.20 - Severe sepsis without septic shock; N17.9 - Acute kidney failure, unspecified Code(s): A41.9 - Sepsis, unspecified organism Status: Resolved Assessment and Plan: patient on hospitalization at [facility] as well as currently presumably due to right foot osteomyelitis (#4) follow cultures continue antibiotics follow hemodynamics (5) Osteomyelitis: Qualifiers: Laterality: left Osteomyelitis location: foot Osteomyelitis type: other Qualified Code(s): M86.8X7 - Other osteomyelitis, ankle and foot Code(s): M86.9 - Osteomyelitis, unspecified Status: Acute Assessment and Plan: as noted by imaging studies to date Orthopedics following with recommendations noted continue conservative therapy (6) Elevated troponin: Code(s): R79.89 - Other specified abnormal findings of blood chemistry Status: Acute Assessment and Plan: Cardiology recommendations noted supportive therapy (7) Anemia: Qualifiers: Anemia type: unspecified type Qualified Code(s): D64.9 - Anemia, unspecified Code(s): D64.9 - Anemia, unspecified Status: Acute Assessment and Plan: presumably due to BREE, CKD, and acute illness consider Epogen while hospitalized follow trend of H/H (8) Diabetes: Qualifiers: Diabetes mellitus complication detail: with other circulatory complications Diabetes mellitus complication status: with circulatory complication Diabetes mellitus nursing home insulin use: with nursing home use Diabetes mellitus type: type 2 Qualified Code(s): E11.59 - Type 2 diabetes mellitus with other circulatory complications; Z79.4 - long term care phlebotomist (current) use of insulin Code(s): E11.9 - Type 2 diabetes mellitus without complications Status: Chronic Assessment and Plan: follow accuchecks poor control at baseline given last A1c on SSI Please see my note from yesterday regarding my discussion with his [employer]. Will continue to follow. Subjective Date/time seen: 12/01/19 09:25 Waiting to be taken down for kidney biopsy -- tells me that once the p
[2019-12-01 09:29] LABS: INR 1.2; Prothrombin Time 14.7 Seconds (11.1-14.7)
[2019-12-01] MEDS: ACETAMINOPHEN 325 MG TABLET 650 MG PO (09:36)
[2019-12-01] MEDS: hydrALAZINE 12.5 MG TABLET PO (09:37)
[2019-12-01 09:38] LABS: Alanine Aminotransferase 35 U/L (4-50); Albumin Level 2.8 g/dL (3.5-5.1); Alkaline Phosphatase 57 U/L (38-126); Anion Gap 11 mmol/L (8-16); Aspartate Amino Transferase 46 U/L (17-59); Bilirubin,Total 0.3 mg/dL (0.2-1.3); Blood Urea Nitrogen 109 mg/dL (9-20); Calcium 8.6 mg/dL (8.4-10.2); Carbon Dioxide 20 mmol/L (22-30); Chloride 102 mmol/L (98-107); Estimated CRCL calculation 10 ml/min; Estimated Glomerular Filt Rate 5; Glucose 110 mg/dL (75-110); Phosphorus 6.9 mg/dL (2.5-4.5); Potassium 5.1 mmol/L (3.4-5.0); Sodium 133 mmol/L (137-145)
[2019-12-01] MEDS: GABAPENTIN 300 MG CAPSULE 600 MG PO (09:38)
[2019-12-01] MEDS: ISOSORBIDE MONONITRATE 30 MG TAB.ER.24H PO (09:38)
[2019-12-01] MEDS: TAMSULOSIN HCL 0.4 MG CAPSULE PO (09:38)
[2019-12-01] MEDS: guaiFENesin 12 HR 600 MG TABCR PO (09:38)
[2019-12-01] MEDS: COLLAGENASE OINT 30 GM TUBE 1 APPLIC TOPICAL (09:38)
[2019-12-01 09:50] LABS: ANCA Screen Negative (Negative); Anti Glomerular Basement Memb <1.0 AI (<1.0)
[2019-12-01 10:05] LABS: Vancomycin Random 19.2 ug/mL (10-20)
[2019-12-01 11:24] LABS: SM Antibody <1.0; SM/RNP Antibody <1.0
[2019-12-01] MEDS: DESMOPRESSIN ACETATE INJ 20 MCG in SODIUM CHLORIDE 0.9% IV 50 ML 100 MCG IVPB (11:36)
[2019-12-01 12:16] LABS: Glucose Point of Care 88 (65-105)
[2019-12-01 12:25] VITALS: BP 136/77; PULSE 85; RESP 16; O2SAT 95
[2019-12-01] MEDS: TOLNAFTATE 1% POWDER 45 GM BTL 1 APPLIC TOPICAL (12:37)
[2019-12-01 13:12] VITALS: BP 138/87; PULSE 89; RESP 20; O2SAT 96
[2019-12-01 14:00] VITALS: BP 123/74; PULSE 92; RESP 20; TEMP 36.7; O2SAT 100
--- NOTE | 2019-12-01 16:08 | PM.DS ---
DS: Admitting Diagnosis Admitting Diagnosis Admitting Diagnosis: Weakness+ DS: Discharge Diagnosis Discharge Diagnosis (1) Osteomyelitis: Qualifiers: Laterality: left Osteomyelitis location: foot Osteomyelitis type: other Qualified Code(s): M86.8X7 - Other osteomyelitis, ankle and foot Code(s): M86.9 - Osteomyelitis, unspecified Status: Acute Assessment and Plan: Of the left fifth metatarsal head. Plantar soft tissue gas seen on foot x-ray with linear radiopaque foreign body. Foreign body was felt to be more proximal than the wound and likely chronic in nature. He was seen in consultation by orthopedic surgery and surgical debridement was recommended but patient refused. He opted to proceed with conservative management. He will continue santyl ointment for local debridement and has been set up with wound care at the [facility] for which he will need to follow-up. postop shoe recommended for offloading. He was treated with IV Primaxin and vancomycin during his admission and he will continue renally dosed p.o. Levaquin for 10 days as an outpatient. He will need to follow-up with his PCP at the [facility]. (2) Sepsis: Qualifiers: Acute renal failure type: unspecified Sepsis acute organ dysfunction status: with acute organ dysfunction Sepsis type: sepsis due to unspecified organism Severe sepsis acute organ dysfunction type: acute renal failure Severe sepsis shock status: without septic shock Qualified Code(s): A41.9 - Sepsis, unspecified organism; R65.20 - Severe sepsis without septic shock; N17.9 - Acute kidney failure, unspecified Code(s): A41.9 - Sepsis, unspecified organism Status: Resolved Assessment and Plan: Present on admission and supported by tachycardia, leukocytosis, and fever. Treated with IV antibiotics as above. Sepsis resolved. Fever resolved. Leukocytosis improved; 13.2 at time of discharge. Blood cultures negative. (3) Acute exacerbation of CHF (congestive heart failure): Qualifiers: Heart failure type: unspecified Qualified Code(s): I50.9 - Heart failure, unspecified Code(s): I50.9 - Heart failure, unspecified Status: Acute Assessment and Plan: Echo performed 11/24 which showed low-normal EF 50% and impaired LV diastolic function. BNP >[id number] felt to be fluid overloaded secondary to renal injury. He was seen in consultation by cardiology. He was diuresed and became euvolemic. Will need to follow up with big data analytics lead at [facility]. He was started on isosorbide mononitrate. He was educated regarding heart healthy diet and monitoring daily weights. (4) Acute on chronic kidney failure: Code(s): N17.9 - Acute kidney failure, unspecified; N18.9 - Chronic kidney disease, unspecified Status: Acute Assessment and Plan: Patient has history of CKD stage 3. Creatinine at presentation was 9.4 with steady increase up to 10.2 at time of discharge. He was seen in consultation by nephrology. Etiology is unclear but possibly progression of his underlying CKD. Renal US showed normal kidney size without hydronephrosis. He had proteinuria in nephrotic range. Renal biopsy was performed on 11/30. Aspirin was held for biopsy and recommended continue to be held for 1 week following procedure. He was instructed to follow up with his prison classification counselor at the [facility] for results. Dialysis not performed as volume status remained stable, electrolytes were not critical, and no evidence of uremia. 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 (5) Hyperkalemia: Code(s): E87.5 - Hyperkalemia Status: Resolved Assessment and Plan: Potassium 5.5 at presentation and improved with IV fluids. Potassium was monitored closely. He had a few other episodes of asymptomatic mild hyperkalemia up to 5.3 that resolved without further intervention. Most likely secondary to kidney disease. Ailyn
[2019-12-02 13:07] LABS: SS-A <1.0; SS-B <1.0
[2019-12-02 22:18] LABS: JO 1 Antibody <1.0
[2019-12-03 01:43] LABS: Cryoglobulin, QL Negative (Negative)
[2019-12-03 19:02] LABS: Creatinine, Random Urine 87 mg/dL (20-320); Total Protein/Creatinine Ratio 12000 mg/g creat (22-128)
== END 2019-12-01 18:20 | disposition home health service (06) | DRG 871 ==
LOC: ANHED 23:48 → ANHICU 11-25 00:17 → ANH3MEDSUR 11-28 08:12 → ANHICU 12-02 14:06 → ANHIMU 12-02 14:06
PROVIDERS: Family Medicine; Internal Medicine Nephrology; Admitting Provider Family Medicine; Emergency Provider Emergency Medicine; Visit Provider Physician Assistant
DX: A41.9 Sepsis, unspecified organism (principal); L89.893 Pressure ulcer of other site, stage 3; I21.A1 Myocardial infarction type 2; I50.31 Acute diastolic (congestive) heart failure; N17.9 Acute kidney failure, unspecified; M86.8X7 Other osteomyelitis, ankle and foot; I13.0 Hypertensive heart and chronic kidney disease with heart failure and stage 1 through stage 4 chronic kidney disease, or unspecified chronic kidney disease; G93.40 Encephalopathy, unspecified; Z20.828 Contact with and (suspected) exposure to other viral communicable diseases; E11.21 Type 2 diabetes mellitus with diabetic nephropathy; R65.20 Severe sepsis without septic shock; E11.621 Type 2 diabetes mellitus with foot ulcer; E11.69 Type 2 diabetes mellitus with other specified complication; E87.5 Hyperkalemia; N18.30 Chronic kidney disease, stage 3 unspecified; E11.22 Type 2 diabetes mellitus with diabetic chronic kidney disease; R79.89 Other specified abnormal findings of blood chemistry; D63.1 Anemia in chronic kidney disease; F17.210 Nicotine dependence, cigarettes, uncomplicated; D72.829 Elevated white blood cell count, unspecified; N40.1 Benign prostatic hyperplasia with lower urinary tract symptoms; R33.8 Other retention of urine; F22 Delusional disorders; Z79.4 Long term (current) use of insulin; Z89.511 Acquired absence of right leg below knee; Z86.73 Personal history of transient ischemic attack (TIA), and cerebral infarction without residual deficits
CPT/HCPCS: 36415; 36600; 50200; 51701; 70450; 71045; 73630; 76775; 76942; 80048; 80053; 80069; 80074; 80202; 81001; 82140; 82274; 82375; 82436; 82570; 82595; 82805; 82948; 83036; 83050; 83520; 83605; 83874; 83880; 83883; 84100; 84132; 84155; 84156; 84165; 84166; 84300; 84439; 84443; 84480; 84484; 85025; 85027; 85610; 85730; 85999; 86021; 86038; 86140; 86160; 86162; 86225; 86235; 86706; 87040; 87635; 88300; 88329; 93005; 93306; 93922; 96361; 96365; 96375; 99285; A9270; C9803; J0360; J0610; J0743; J1815; J1940; J2597; J3370; J7030; U0003